=== PATIENT | female | born 1965 | race Caucasian/White ===

== ENCOUNTER → 2018-02-15 06:58 | Outpatient (CLI) | payer OTHER, SELFPAY ==
--- NOTE | 2018-02-15 06:59 | BI_ITS ---
MAMMOGRAPHY - BILATERAL SCREENING 3-D WARREN SYNTHESIS REASON FOR EXAM: Female, 52 years old. Bilateral Screening 3-D tomosynthesis PERTINENT HISTORY: Asymptomatic. Family breast carcinoma, maternal aunt age 50. TECHNIQUE: 2-D mammograms and 3-D Warren synthesis of the breast (s) were performed. CAD was performed. COMPARISON: 02/12/2017, 12/26/2010. FINDINGS: The breast composition is for extremely dense which lowers the sensitivity of mammography. Scattered benign appearing calcifications are again seen. No dense spiculated dominant masses or suspicious microcalcification cluster are identified. No architectural distortion, asymmetric density, adenopathy, skin thickening or nipple retraction identified. There has been no significant change since the most recent prior study. BI/SCREENING MAMM (CAD), BILAT IMPRESSION: No mammographic sign of malignancy. Routine yearly mammograms recommended. ASSESSMENT CATEGORY: BIRADS Category 2: Benign. A letter regarding these results will be sent to the patient by the facility within 30 days. FOLLOW UP RECOMMENDATION: Yearly follow up mammogram recommended. (A) If clinically indicated, MRI breast may be more helpful due to extreme breast density. Negative mammographic results should not deter biopsy as a palpable lesion if present should be followed on clinical grounds and biopsy performed if clinically persistent for 3 months or increasing size. Approximately 10% of breast cancers are not detected by mammography. A normal mammogram should not delay biopsy of a clinically suspicious abnormality. Dense breast tissue mainstream neoplasm. Electronically Signed: Justyn Street, at 12:17 EDT Tel , Service support ,
== END ==
PROVIDERS: Family Provider Family Medicine; PCP Family Medicine; Referring Provider Obstetrics & Gynecology; Visit Provider Obstetrics & Gynecology
DX: Z12.31 Encounter for screening mammogram for malignant neoplasm of breast (principal)
CPT/HCPCS: 77063; 77067

== ENCOUNTER → 2018-11-29 16:43 | Outpatient (CLI) | payer OTHER, SELFPAY ==
[2018-11-29 14:16] VITALS: BMI 25.5
[2018-12-03 15:09] LABS: HPV APTIMA, High Risk Negative (Negative)
== END ==
PROVIDERS: Family Provider Family Medicine; PCP Family Medicine; Referring Provider Obstetrics & Gynecology; Visit Provider Obstetrics & Gynecology
DX: Z12.4 Encounter for screening for malignant neoplasm of cervix (principal)
CPT/HCPCS: 87624; 88175; G0145

== ENCOUNTER → 2019-02-16 06:58 | Outpatient (CLI) | payer OTHER, SELFPAY ==
[2018-11-29 14:16] VITALS: BMI 25.5
--- NOTE | 2019-02-16 07:00 | BI_ITS ---
MAMMOGRAPHY - BILATERAL SCREENING 3-D TOMOSYNTHESIS REASON FOR EXAM: Female, 53 years old. Routine PERTINENT HISTORY: No significant family history. TECHNIQUE: 2-D mammograms and 3-D Tomosynthesis of the breast (s) were performed. CAD was performed. COMPARISON: 02/15/2018 FINDINGS: The breast composition is dense Scattered benign calcifications are seen. No dense spiculated masses or suspicious microcalcifications are identified. No architectural distortion is identified. There is no skin thickening or retraction. There has been no significant change since the prior study of 02/15/2018 BI/SCREEN MAMM (CAD) W/WARREN BILAT IMPRESSION: No mammographic signs of malignancy. Routine yearly mammograms recommended. ASSESSMENT CATEGORY: BIRADS Category 1: Negative. A letter regarding these results will be sent to the patient by the facility within 30 days. FOLLOW UP RECOMMENDATION: Yearly follow up mammogram recommended. (A) Approximately 10% of breast cancers are not detected by mammography. A normal mammogram should not delay biopsy of a clinically suspicious abnormality. Electronically Signed: Addison Kumar, at 8:27 EDT Tel , Service support ,
== END ==
PROVIDERS: Family Provider Family Medicine; PCP Family Medicine; Referring Provider Obstetrics & Gynecology; Visit Provider Obstetrics & Gynecology
DX: Z12.31 Encounter for screening mammogram for malignant neoplasm of breast (principal)
CPT/HCPCS: 77063; 77067

== ENCOUNTER → 2019-10-24 15:10 | Outpatient (CLI) | payer OTHER, SELFPAY ==
[2018-11-29 14:16] VITALS: BMI 25.5
[2019-10-24 18:21] LABS: ALB/GLOB Ratio 1.1 RATIO (0.9-2.4); AST(SGOT) 26 U/L (15-37); Alanine Aminotransfer ALT/SGPT 30 U/L (13-56); Albumin, Serum 4.1 g/dL (3.2-5.0); Alkaline Phosphatase 78 U/L (45-117); Anion Gap 7 (5-15); BUN 18 mg/dL (7-18); BUN/Creat Ratio 19.1 RATIO (10-20); CRP < 2.90 mg/L (0.0-3.0); Calcium,Total 9.2 mg/dL (8.5-10.1); Chloride 104 mmol/L (98-107); Creatinine, Serum 0.94 mg/dL (0.55-1.02); EST Glomerular Filtration Rate 65 mL/min (>60); Est Glom Filt Rate - Afr Amer 79 mL/min (>60); Globulin 3.8 g/dL (2.2-4.2); Glucose 122 mg/dL (74-106); Potassium 3.7 mmol/L (3.5-5.1); Protein, Total 7.9 g/dL (6.4-8.2); Sodium Level 139 mmol/L (136-145)
[2019-10-24 18:26] LABS: Erythrocyte Sedimentation Rate 15 mm/hr (0-30)
== END ==
PROVIDERS: PCP Family Medicine; Visit Provider Family Medicine
DX: Z51.81 Encounter for therapeutic drug level monitoring (principal); M54.9 Dorsalgia, unspecified; M32.9 Systemic lupus erythematosus, unspecified
CPT/HCPCS: 36415; 80053; 85652; 86140

== ENCOUNTER → 2019-10-28 09:55 | Outpatient (CLI) | payer OTHER, SELFPAY ==
[2018-11-29 14:16] VITALS: BMI 25.5
--- NOTE | 2019-10-28 10:09 | US_ITS ---
STUDY: RENAL ULTRASOUND - COMPLETE REASON FOR EXAM: Female, 54 years old. RT FLANK PAIN X 6 MONTHS TECHNIQUE: Ultrasound evaluation of the kidneys was performed with real-time and static cerrato-scale imaging. COMPARISON: None. FINDINGS: RIGHT KIDNEY: Normal location of the right kidney, which is normal in size. The right kidney measures 10.9 cm x 4.4 cm x 3.7 cm. There is a normal cortex of the right kidney. The renal cortex measures 1.3 cm. There is no right renal mass or cyst. There are no right renal calculi. There is no right hydronephrosis. DISTAL RIGHT URETER: There is non-visualization of the distal right ureter. There is no demonstrated right ureterovesical junction calculus. There is a visualized right ureteral jet. LEFT KIDNEY: Normal location of the left kidney, which is normal in size. The left kidney measures 10 cm x 4.2 cm x 4.4 cm. There is a normal cortex of the left kidney. The renal cortex measures 1.5 cm. There is no left renal mass or cyst. I suspect a 5 mm nonobstructive intrarenal calculus. There is no left hydronephrosis. DISTAL LEFT URETER: There is non-visualization of the distal left ureter. There is no demonstrated left ureterovesical junction calculus. There is a visualized left ureteral jet. BLADDER: The distended urinary bladder has a volume of 348 ml. There is a normal wall thickness of the distended urinary bladder. There is no demonstrated mass within the urinary bladder. There are no demonstrated bladder calculi. US/Kidney and Bladder IMPRESSION: I suspect a 5 mm nonobstructive left intrarenal calculus. Electronically Signed: Paul Neff, at 12:17 EDT , Service support ,
== END ==
PROVIDERS: PCP Family Medicine; Referring Provider Family Medicine; Visit Provider Family Medicine
DX: R10.9 Unspecified abdominal pain (principal)
CPT/HCPCS: 76770

== ENCOUNTER → 2020-02-20 07:40 | Outpatient (CLI) | payer OTHER, SELFPAY ==
[2018-11-29 14:16] VITALS: BMI 25.5
--- NOTE | 2020-02-20 07:40 | BI_ITS ---
MAMMOGRAPHY - BILATERAL SCREENING REASON FOR EXAM: Female, 54 years old. Routine annual screening examination. PERTINENT HISTORY: Aunt with breast cancer. TECHNIQUE: Digital bilateral breast warren (3D mammographic acquisition) in the CC and MLO projections. 2-D mediolateral oblique (MLO) and craniocaudad (CC) views of both breasts were obtained. CAD: Full Field Digital Mammography with Computer Added Detection was performed. COMPARISON: Comparison is made with prior examination dated 02/16/2019 and 02/15/2018. FINDINGS: Breast Composition: The breasts are extremely dense, which lowers the sensitivity of mammography. There are no dominant masses or suspicious calcifications. No other significant abnormalities are identified. There has been no significant change since the prior study. BI/SCREEN MAMM (CAD) W/WARREN BILAT IMPRESSION: Stable bilateral screening mammogram. Yearly follow-up mammogram recommended. (A) ASSESSMENT CATEGORY: BIRADS Category 1: Negative. A letter regarding these results will be sent to the patient by the facility within 30 days. Approximately 10% of breast cancers are not detected by mammography. A normal mammogram should not delay biopsy of a clinically suspicious abnormality. [id number] Electronically Signed: Paul Neff, at 8:33 EDT , Service support ,
== END ==
PROVIDERS: PCP Family Medicine; Referring Provider Obstetrics & Gynecology; Visit Provider Obstetrics & Gynecology
DX: Z12.31 Encounter for screening mammogram for malignant neoplasm of breast (principal); Z80.3 Family history of malignant neoplasm of breast
CPT/HCPCS: 77063; 77067

== ENCOUNTER → 2020-09-25 14:27 | Outpatient (CLI) | payer OTHER, SELFPAY ==
[2020-02-20 08:08] VITALS: BMI 25.5
--- NOTE | 2020-09-25 14:33 | US_ITS ---
STUDY: SUPERFICIAL ULTRASOUND - BACK REASON FOR EXAM: Female, 55 years old. MASS R LUMBAR PARASPINAL MUSCLE TECHNIQUE: A superficial ultrasound was performed with real-time and static blue-scale imaging. COMPARISON: None. FINDINGS: Multiple longitudinal and transverse ultrasound images the right side of the back in a paraspinal location failed to demonstrate a discrete solid or cystic mass or lymphadenopathy. US/Ext Non Vasc Limited/Soft Tiss IMPRESSION: Normal ultrasound of the soft tissues of the back. Electronically Signed: Jaylon Agudelo MD at 15:10 EDT Tel , Service support ,
== END ==
PROVIDERS: PCP Family Medicine; Referring Provider Family Medicine; Visit Provider Family Medicine
DX: M54.5 Low back pain (principal); M79.89 Other specified soft tissue disorders
CPT/HCPCS: 76882

== ENCOUNTER → 2021-01-31 15:35 | Outpatient (CLI) | payer OTHER, SELFPAY ==
--- NOTE | 2021-01-31 15:44 | MRI_ITS ---
STUDY: MRI LUMBAR SPINE WITH AND WITHOUT CONTRAST REASON FOR EXAM: Female, 55 years old. SOFT TISSUE MASS LUMBAR SPINE R lateral spine area marked with beads TECHNIQUE: Standardized fat and water weighted pulse sequences were obtained in the sagittal and axial planes. IV 12cc Dotarem was administered for the contrast portion of the examination. COMPARISON: None FINDINGS: T10-T11 and T11-T12: (Sagittal only). Normal endplates. Normal disc height, hydration and morphology. No ventral extradural defect. Normal central canal and bilateral intervertebral neural foramina. T12-L1: (Sagittal only). Normal endplates. Minimal disc space height narrowing. Left posterior paramedian ventral extradural defect is disc protrusion. Normal central canal and bilateral intervertebral neural foramina. Normal lumbar lordosis. There is no substantial scoliosis. Normal conus medullaris that terminates at the T12-L1 disc level. L1-2: Normal endplates. Normal disc height, hydration and morphology. Round benign focal fatty infiltration in the central L2 vertebral body. Normal facet joints. Normal central canal and bilateral lateral recesses. Normal bilateral intervertebral neural foramina. L2-3: Normal endplates. Normal disc height, hydration and morphology. Small benign focal fatty infiltration in the anterior upper L3 vertebral body. Normal facet joints. No ventral extradural defect. Normal central canal and bilateral lateral recesses. Normal bilateral intervertebral neural foramina. L3-4: Normal endplates. Normal disc height, hydration and morphology. Normal bilateral facet joints. Normal central canal and bilateral lateral recesses. Normal bilateral intervertebral neural foramina. L4-5: Normal endplates. Normal disc height, hydration and morphology. Mild central canal stenosis with an AP canal diameter of 9 mm. Normal bilateral lateral recesses. Normal facet joints. Normal bilateral intervertebral neural foramina. L5-S1: Normal endplates. Mild disc space height narrowing. Mild central canal stenosis with an AP canal diameter of 8.4 mm. Normal bilateral lateral recesses. Moderate right degenerative facet arthropathy. Mild left degenerative facet arthropathy. Normal bilateral intervertebral neural foramina. Normal visualized sacral ala. Normal visualized paraspinous soft tissue structures. No suspicious mass lesions underneath the right posterior paraspinal markers at the L1-L2 and L3-L4 disc space levels. No abnormal enhancing lesions intradurally and extradurally. MRI/Spine Lumbar W/WO Contrast IMPRESSION: 1. No MRI evidence of soft tissue mass in the right posterior paraspinal area underneath the markers at the L1-L2 and L3-L4 disc space levels. Only fat is present underneath the markers. 2. Mild central canal stenosis at L4-L5 disc space level with an AP canal diameter of 9 mm. 3. Mild central canal stenosis at L5-S1 disc space level with an AP canal diameter of 8.4 mm, moderate right degenerative facet arthropathy and mild left degenerative facet arthropathy. 4. No MRI evidence of lumbar extruded disc fragment. 5. No MRI evidence of any enhancing lesions intradurally and extradurally. Electronically Signed: Tristan Nice MD at 9:38 EDT , Service support ,
== END ==
PROVIDERS: PCP Family Medicine; Referring Provider Family Medicine; Visit Provider Family Medicine
DX: R22.9 Localized swelling, mass and lump, unspecified (principal); M54.5 Low back pain
CPT/HCPCS: 72158; A9575

== ENCOUNTER → 2021-02-25 08:15 | Outpatient (CLI) | payer OTHER, SELFPAY ==
[2020-02-20 08:08] VITALS: BMI 25.5
--- NOTE | 2021-02-25 08:17 | BI_ITS ---
MAMMOGRAPHY - BILATERAL SCREENING REASON FOR EXAM: Female, 55 years old. Routine annual screening examination. PERTINENT HISTORY: Aunt with breast cancer. TECHNIQUE: Digital bilateral breast warren (3D mammographic acquisition) in the CC and MLO projections. 2-D mediolateral oblique (MLO) and craniocaudad (CC) views of both breasts were obtained. CAD: Full Field Digital Mammography with Computer Added Detection was performed. COMPARISON: Comparison is made with prior examination dated 02/20/2020 and 02/16/2019. FINDINGS: Breast Composition: The breasts are extremely dense, which lowers the sensitivity of mammography. There are no dominant masses or suspicious calcifications. No other significant abnormalities are identified. There has been no significant change since the prior study. BI/SCRN MAMM (CAD)W/WARREN BILAT IMPRESSION: Stable bilateral screening mammogram. Yearly follow-up mammogram recommended. (A) ASSESSMENT CATEGORY: BIRADS Category 1: Negative. A letter regarding these results will be sent to the patient by the facility within 30 days. Approximately 10% of breast cancers are not detected by mammography. A normal mammogram should not delay biopsy of a clinically suspicious abnormality. [id number] Electronically Signed: Paul Neff MD at 8:54 EDT , Service support ,
== END ==
PROVIDERS: PCP Family Medicine; Referring Provider Obstetrics & Gynecology; Visit Provider Obstetrics & Gynecology
DX: Z12.31 Encounter for screening mammogram for malignant neoplasm of breast (principal)
CPT/HCPCS: 77063; 77067

== ENCOUNTER 2021-05-17 13:36 | Outpatient (CLI) | payer OTHER, SELFPAY | END 2021-05-17 23:59 | disposition short-term general hospital (02) | LOC: LABSPEC 13:37 | PROVIDERS: PCP Family Medicine; Referring Provider Physician Assistant Surgical; Visit Provider Physician Assistant Surgical | DX: Z11.52 Encounter for screening for COVID-19 (principal) | CPT/HCPCS: 87635; U0003; U0005 ==

== ENCOUNTER → 2021-09-05 | Outpatient (CLI) | payer OTHER, SELFPAY ==
--- NOTE | 2021-09-05 09:39 | STRESSREP ---
Stress Test Report Date: 09-05-2021 Procedure: Exercise tolerance test/imaging study Indications: Abnormal ECG; syncope Consent: Per the patient Procedure: The patient exercised on a Daniel protocol for 9 minutes completing Stage III achieving a peak heart rate of 160 bpm (98% predicted maximal heart rate) with a peak blood pressure 148/60 mmHg and a peak MET capacity of 10 METs. The baseline ECG demonstrated normal sinus rhythm. The peak exercise ECG demonstrated no obvious ECG changes. There was a rare PAC during exercise. The functional capacity was considered good. There was no complaint of chest discomfort during exercise or recovery. The examination was discontinued secondary to dyspnea. Impression: 1. Technically adequate (percent predicted maximal heart rate greater than 85%) exercise tolerance test 2. Peak exercise ECG with no obvious ECG changes 3. There was a rare PAC during exercise 4. Nuclear images pending Myocardial perfusion imaging study: Technique: The patient was injected with 11.3 mCi of technetium 99m Cardiolite and subsequently rest SPECT Cardiolite nuclear imaging was obtained in the horizontal long, vertical long, and short axis views. The patient exercised on a Daniel protocol for 9 minutes completing Stage III achieving a peak heart rate of 160 bpm (98% predicted maximal heart rate) with a peak blood pressure 148/60 mmHg and a peak MET capacity of 10 METs. The patient was injected with 33.5 mCi of technetium 99m Cardiolite and subsequently stress SPECT Cardiolite nuclear imaging was obtained in the horizontal long, vertical long, and short axis views. A gated Cardiolite study at peak stress was obtained. Interpretation: Rest and stress SPECT Cardiolite nuclear imaging status post realignment, normalization, and attenuation correction, demonstrates the appearance of relative uniform tracer uptake and myocardial perfusion appearing within normal limits. There is end systolic thickening and brightening. The gated Cardiolite study demonstrates myocardial thickening and inward wall motion. The reported LVEF is 75%. Impression: 1. Rest and stress SPECT Cardiolite nuclear imaging demonstrate relative uniform tracer uptake and myocardial perfusion appearing within normal limits. 2. The gated Cardiolite study reports an LVEF of 75%. This note was generated with [employer] software. It may contain incorrect words, spelling, and punctuation that were not noted in checking the note before signing.
== END | disposition home or self-care (01) ==
LOC: CVS 06:56
PROVIDERS: PCP Family Medicine; Referring Provider Family Medicine; Visit Provider Family Medicine
DX: R94.31 Abnormal electrocardiogram [ECG] [EKG] (principal); R55 Syncope and collapse
CPT/HCPCS: 78452; 93017; A9500; A4216

== ENCOUNTER → 2022-01-09 | Outpatient (CLI) | payer OTHER, SELFPAY ==
--- NOTE | 2022-01-09 13:52 | ECHOD_ITS ---
Reason For Study: Syncope Procedure This was a 2D Doppler, Color Flow transthoracic echocardiogram. The exam was of adequate technical quality. Exam performed in department. Left Ventricle Normal LV size. Left ventricular systolic function is normal. The estimated ejection fraction is 65 %. No evidence for diastolic dysfunction. Right Ventricle Normal RV size. Normal systolic function. Atria Normal left atrium. Normal right atrium. No doppler evidence for ASD. Mitral Valve There is no mitral annular calcification. Mild diffuse mitral valve thickening. Mild focal mitral valve calcification of the posterior leaflet. Trivial eccentric mitral valve insufficiency. Tricuspid Valve Normal tricuspid valve. Trivial tricuspid valve insufficiency. Unable to estimate RV systolic pressure due to insufficient tricuspid regurgitant envelope. Aortic Valve Trisinus/trileaflet aortic valve. Normal aortic valve. Pulmonic Valve The pulmonic valve is not well visualized. Great Vessels The aortic root is not well visualized. Pericardium/Pleural No pericardial effusion. MMode/2D Measurements & Calculations LVIDd: 5.2 cm IVSd: 0.67 cm LA dimension: 3.2 cm LVIDs: 3.4 cm LVPWd: 0.65 cm RVDd: 3.0 cm FS: 33.9 % LAV(MOD-bp): 42.7 ml LA A4 area: 15.2 cm2 RA A4 area: 12.7 cm2 LAV(MOD-bp) Indexed: 27.5 ml/m2 LAV(MOD-sp2): 48.9 ml LAV(MOD-sp4): 36.9 ml Time Measurements MV dec time: 0.16 sec Doppler Measurements & Calculations MV E max yannick: 62.9 cm/sec Lat Peak E' Yannick: 9.2 cm/sec Med Peak E' Yannick: 8.2 cm/sec MV A max yannick: 65.3 cm/sec E/E' lat: 6.9 E/E' med: 7.7 MV E/A: 0.96 MV dec slope: 388.5 cm/sec2 Ao V2 max: 117.1 cm/sec LV V1 max: 88.1 cm/sec Ao max P.5 mmHg LV V1 max P.1 mmHg Ao V2 mean: 79.0 cm/sec LV V1 mean P.6 mmHg Ao mean P.9 mmHg LV V1 mean: 59.6 cm/sec Ao V2 VTI: 25.0 cm LV V1 VTI: 18.0 cm PA V2 max: 69.8 cm/sec ECHO/Echo Complete Interpretation Summary Left ventricular systolic function is normal. The estimated ejection fraction is 65 %. Mild diffuse mitral valve thickening. Mild focal mitral valve calcification of the posterior leaflet. Trivial eccentric mitral valve insufficiency. Trivial tricuspid valve insufficiency. Unable to estimate RV systolic pressure due to insufficient tricuspid regurgita nt envelope. No evidence for diastolic dysfunction. Ordering Physician: Fred Pleitez Referring Physician: Summer Maldonado Performed By: Jh Guevara RCS
== END | disposition home or self-care (01) ==
LOC: CVS 13:51
PROVIDERS: PCP Family Medicine; Referring Provider Internal Medicine Cardiovascular Disease; Visit Provider Internal Medicine Cardiovascular Disease
DX: R55 Syncope and collapse (principal)
CPT/HCPCS: 93306

== ENCOUNTER → 2022-03-10 | Outpatient (CLI) | payer OTHER, SELFPAY ==
--- NOTE | 2022-03-10 14:57 | BI_ITS ---
MAMMOGRAPHY - BILATERAL SCREENING REASON FOR EXAM: Female, 56 years old. Routine annual screening examination. PERTINENT HISTORY: Aunt with breast cancer. TECHNIQUE: Digital bilateral breast warren (3D mammographic acquisition) in the CC and MLO projections. 2-D mediolateral oblique (MLO) and craniocaudad (CC) views of both breasts were obtained. CAD: Full Field Digital Mammography with Computer Added Detection was performed. COMPARISON: Comparison is made with prior study 02/25/2021 and 02/20/2020. FINDINGS: Breast Composition: The breasts are extremely dense, which lowers the sensitivity of mammography. There are no dominant masses or suspicious calcifications. No other significant abnormalities are identified. There has been no significant change since the prior study. BI/SCRN MAMM (CAD)W/WARREN BILAT IMPRESSION: Stable bilateral screening mammogram. Yearly follow-up mammogram recommended. (A) ASSESSMENT CATEGORY: BIRADS Category 1: Negative. A letter regarding these results will be sent to the patient by the facility within 30 days. Approximately 10% of breast cancers are not detected by mammography. A normal mammogram should not delay biopsy of a clinically suspicious abnormality. [id number] Electronically Signed: Paul Neff MD at 15:51 EDT ,
== END | disposition home or self-care (01) ==
LOC: OPBI 14:56
PROVIDERS: PCP Family Medicine; Visit Provider Obstetrics & Gynecology
DX: Z12.31 Encounter for screening mammogram for malignant neoplasm of breast (principal); Z80.3 Family history of malignant neoplasm of breast
CPT/HCPCS: 77063; 77067

== ENCOUNTER → 2022-08-18 | Outpatient (CLI) | payer OTHER, SELFPAY ==
--- NOTE | 2022-08-18 16:29 | RAD_ITS ---
EXAM: XR CHEST, 2 VIEWS CLINICAL INDICATION: FEVER TECHNIQUE: Frontal and lateral views of the chest. This report was created using [employer] report generation technology. COMPARISON: July 25 FINDINGS: LUNGS AND PLEURAL SPACES: Increased lung volumes and increased lucency at the upper lungs is concerning for emphysema. No consolidation. No pleural effusion or pneumothorax. HEART: Unremarkable. Cardiac silhouette not enlarged. MEDIASTINUM: Central airways and mediastinal contour are unremarkable. BONES/JOINTS: Unremarkable. SOFT TISSUES: Unremarkable. RAD/Chest PA and Lateral IMPRESSION: No acute cardiopulmonary disease. Electronically Signed: Raad Sneed MD at 4:05 EDT ,
[2022-08-18 17:39] LABS: Absolute Lymphocyte Count 1.82 X10^3/uL (0.83-4.51); Basophil# 0.04 X10^3/uL; Basophil% 0.5 % (0-1); Eosinophil# 0.05 X10^3/uL; Eosinophils% 0.6 % (0-5); Hematocrit 38.6 % (37-47); Hemoglobin 12.4 g/dL (12.0-15.0); Lymphocyte # 1.82 X10^3/ul (0.83-4.51); Lymphocyte % 20.7 % (19-41); Mean Corp Hgb Conc 32.1 g/dL (32-36); Mean Corpuscular Hgb 29.8 pg (27.0-32.0); Mean Corpuscular Volume 92.8 fL (81-99); Mean Platelet Vol. 9.4 fl (6.2-12.0); Monocyte% 10.2 % (0-10); NRBC Flagged by Analyzer 0 % (0-5); Neutrophil # 5.95 X10^3/uL (2.7-7.7); Neutrophil % 67.7 % (47-70); Platelet Count 236 K/mm3 (150-450); RBC Distribution Width CV 12.2 % (11.6-14.6); RBC Distribution Width SD 41.5 fl (35.1-43.9); Red Blood Count 4.16 M/mm3 (4.2-5.4); White Blood Count 8.8 K/mm3 (4.4-11.0)
== END | disposition home or self-care (01) ==
PROVIDERS: PCP Family Medicine; Referring Provider Family Medicine; Visit Provider Family Medicine
DX: R50.9 Fever, unspecified (principal)
CPT/HCPCS: 36415; 71046; 85025; 87635; U0003; U0005

== ENCOUNTER 2023-01-05 19:17 | Emergency (ER) | payer OTHER, SELFPAY ==
[2023-01-05 19:18] VITALS: BP 139/70; PULSE 100; RESP 18; TEMP 37.4; O2SAT 95; BMI 24.0
--- NOTE | 2023-01-05 19:57 | RAD_ITS ---
STUDY: X-RAY CHEST REASON FOR EXAM: Female, 57 years old. Sob TECHNIQUE: Single AP portable view of the chest. COMPARISON: August 18, 2022 chest x-ray FINDINGS: The lungs are clear and expanded. There is no demonstrated pleural abnormality. Normal size heart. Normal mediastinum and ayden. Normal visualized pulmonary arteries. There is atherosclerotic tortuosity of the aortic arch and descending thoracic aorta. There are diffuse degenerative changes of the visualized thoracic spine. Normal visualized ribs, clavicles, and shoulders. There is no demonstrated abnormality of the visualized soft tissue structures of the upper abdomen. RAD/Chest 1 View IMPRESSION: Stable chest, no visualized acute focal infiltrate. Electronically Signed: Rosalia Manzano MD at 20:24 EDT ,
--- NOTE | 2023-01-05 21:44 | EX.ED.DYSGE1 ---
HPI History of Present Illness Chief Complaint: Shortness of Breath Informant: patient and spouse/S.O. Narrative Narrative: Patient presents with body aches and other symptoms. Patient states she had a slight sore throat for couple days but that is better. Then over the last days she has developed diffuse myalgias. She states she feels like a she got run over with a truck. She has had some congestion. She has had some cough but no productivity. She is not actually short of breath. She has had loss of appetite but no nausea vomiting diarrhea or abdominal pain. She has had a low-grade fever below 100. She does not know anyone else who is ill. What concerned her is that she took a nap today. When she woke up she was much more achy all over. This concerned her. But now that she is up moving she feels better. She took a COVID home test that was negative. No travel surgery immobilization personal family history of DVT or PE. Patient has no medical illness. She does have some allergies but no diabetes blood pressure heart disease pulmonary embolus. She is not on any long-term medications. [facility] Medical History Allergies Basal cell carcinoma (BCC) Chest pain Chronic headaches Lupus (systemic lupus erythematosus) Osteopenia Syncope Home Medications ascorbate calcium (vitamin C) 500 mg tablet 500 mg PO DAILY 02/20/20 [History Last Taken Unknown] calcium citrate 250 mg calcium-vitamin D3 5 mcg (200 unit) tablet (Citracal Regular) 1 tab PO TID 02/20/20 [History Last Taken Unknown] Allergy/AdvReac Type Severity Reaction Status Date / Time No Known Allergies Allergy Verified 01/05/23 19:21 Family History Father Diabetes Hypertension Mother Osteoporosis Cancer Pulmonary fibrosis Surgical History Hx of colonoscopy Social History Smoking Status: Former smoker alcohol intake: never substance use type: does not use caffeine: Yes frequency: 3-4 times per week seatbelt use: always do you feel safe at home: Yes additional social history: - Indra Gastelum Works from home ROS ROS ED Constitutional Constitutional ED: Reports chills, fever(s) and subjective Eyes Eyes: Denies change in vision ENT ENT ED: Reports rhinorrhea and sore throat; Denies ear pain Cardiovascular Cardiovascular: Denies chest pain, palpitations or racing heartbeat Respiratory/Chest Respiratory/Chest: Reports cough; Denies dyspnea Gastrointestinal Gastrointestinal: Denies abdominal pain, diarrhea, nausea or vomiting Genitourinary Genitourinary ED: Denies dysuria or urinary frequency Musculoskeletal Musculoskeletal: Reports arthralgias and myalgias Integumentary Denies rash Neurologic Neurologic: Denies headache(s), paresthesias or weakness Endocrine Endocrinology: Denies polydipsia or polyuria Hematologic/Lymphatic Hematologic/Lymphatic: Denies easy bleeding, easy bruising or lymphadenopathy Allergic/Immunologic Allergic/Immunologic ED: Denies urticaria EXAM Physical Exam Narrative Exam Narrative: Patient is awake alert appropriate no acute distress sitting comfortably in bed. HEENT shows no erythema. No sign of trauma. Mucous membranes are still moist. Eyes no icterus or injection. Neck is supple. No JVD. No meningismus. Lungs are clear bilaterally. Saturations are normal at 95% on room air showing no hypoxia. There is no pain with a deep breath. Heart is regular. Rate of about 85 on my exam. No murmur gallop rub or muffled tones. Peripheral pulses are normal x4. Abdomen is soft and completely nontender. Again, she has lack of interest in food but no pain nausea vomiting or diarrhea at this time. There is no CVA or suprapubic tenderness. Extremities show no edema or cords. No swollen joints. Skin shows no rashes or pallor. No jaundice. Const Vital Signs: 01/05/23 19:18 Temperature 99.3 F H Temperature Source Temporal Pulse Rate 100 Respiratory Rate 18 Blood Pressure 139/70 H Blood Pressure Mean 93 Pulse Ox 95 Oxygen Delivery Method Room Air MDM MDM MDM Narrative Medical decision making narrative: Patient presents with symptoms consistent with a viral illness. She has congestion cough loss of appetite and diffuse myalgias. She has negative COVID here and negative at home. My independent interpretation the patient's single view AP chest x-ray shows no acute process. Final reading is stable chest, no visualized acute focal infiltrate. I do not think further work-up is needed at this point. Patient is feeling better. We discussed maintaining fluids, diet, Tylenol. If she develops specific symptoms of focal pain, trouble breathing, sputum production, hemoptysis or other issues she should return. But at this point I do not think blood work or further work-up is needed. Radiography Diagnostic Testing: Clinical Impression(s) from Imaging Studies Chest X-Ray 01/05/23 19:57 IMPRESSION: Stable chest, no visualized acute focal infiltrate. Electronically Signed: Rosalia Manzano MD at 20:24 EDT , Discharge Plan Triage Chief Complaint: Shortness of Breath ED Provider: Dennis Freed Dx/Rx/DC Orders Clinical Impression: Myalgia, Loss of appetite, Acute viral syndrome Instructions: ED Myalgias, ED Viral Syndrome (Adult) Prescriptions: No Action calcium citrate 250 mg calcium-vitamin D3 200 unit tablet 250 mg calcium- 200 unit tablet 1 tab PO TID ascorbate calcium (vitamin C) 500 mg tablet 500 mg PO DAILY Primary Care Provider: Summer Maldonado Referrals: Summer Maldonado DO [Primary Care Provider] - 3-5 Days if not improving Disposition Disposition: Home, Self Care
== END 2023-01-05 22:00 | disposition home or self-care (01) ==
PROVIDERS: Emergency Provider Emergency Medicine; PCP Family Medicine; Visit Provider Emergency Medicine
DX: M79.10 Myalgia, unspecified site (principal); B34.9 Viral infection, unspecified; Z87.891 Personal history of nicotine dependence; R63.0 Anorexia
CPT/HCPCS: 71045; 87811; 99282

== ENCOUNTER → 2023-03-16 | Outpatient (CLI) | payer OTHER, SELFPAY ==
--- NOTE | 2023-03-16 14:18 | BI_ITS ---
MAMMOGRAPHY - BILATERAL SCREENING REASON FOR EXAM: Female, 57 years old. Routine annual screening examination. PERTINENT HISTORY: Aunt with breast cancer. TECHNIQUE: Digital bilateral breast warren (3D mammographic acquisition) in the CC and MLO projections. 2-D mediolateral oblique (MLO) and craniocaudad (CC) views of both breasts were obtained. CAD: Full Field Digital Mammography with Computer Added Detection was performed. COMPARISON: Comparison is made with prior study March 10, 2022 and February 25, 2021. FINDINGS: Breast Composition: The breasts are extremely dense, which lowers the sensitivity of mammography. There are no dominant masses or suspicious calcifications. No other significant abnormalities are identified. There has been no significant change since the prior study. BI/SCRN MAMM (CAD)W/WARREN BILAT IMPRESSION: Stable bilateral screening mammogram. Yearly follow-up mammogram recommended. (A) ASSESSMENT CATEGORY: BIRADS Category 1: Negative. A letter regarding these results will be sent to the patient by the facility within 30 days. Approximately 10% of breast cancers are not detected by mammography. A normal mammogram should not delay biopsy of a clinically suspicious abnormality. [id number] Electronically Signed: Paul Neff MD at 15:12 EST ,
[2023-03-23 13:07] LABS: HPV APTIMA, High Risk Negative (Negative)
== END | disposition home or self-care (01) ==
PROVIDERS: PCP Family Medicine; Referring Provider Family Medicine; Visit Provider Obstetrics & Gynecology
DX: Z12.31 Encounter for screening mammogram for malignant neoplasm of breast (principal); Z80.3 Family history of malignant neoplasm of breast
CPT/HCPCS: 77063; 77067; 87624; 88175; G0145

== ENCOUNTER → 2023-03-26 | Outpatient (CLI) | payer OTHER, SELFPAY ==
--- NOTE | 2023-03-26 16:02 | BD_ITS ---
STUDY: DUAL ENERGY X-RAY ABSORPTIOMETRY / DXA REASON FOR EXAM: Female, 57 years old. [id number] TECHNIQUE: Bone Mineral Density (BMD) measurements of lumbar spine and bilateral hips were obtained. COMPARISON: None. FINDINGS: Lumbar Spine (L1-L4): g/cm2 (0.814) / T-score (-2.1) / Z-score (-0.8) Findings are suggestive of osteopenia with a high fracture risk. Left Femur Total: g/cm2 (0.731) / T-score (-1.7) / Z-score (-0.9) Left Femoral Neck: g/cm2 (0.598) / T-score (-2.3) / Z-score (-1.0) Right Femur Total: g/cm2 (0.724) / T-score (-1.8) / Z-score (-0.9) Right Femoral Neck: g/cm2 (0.605) / T-score (-2.2) / Z-score (-1.0) BD/Dexa Bone Density Study IMPRESSION: The patient is considered osteopenic as outlined below according to World [employer] Organization (WHO) criteria with a high fracture risk. Reference Information: The T-score is the number of standard deviations above or below the standard which is normal for young adults at their peak bone mineral density. The World Health Organization (WHO) interprets the T-scores as follows: Above -1 Normal bone density Between -1 and -2.5 Osteopenia Equal to / or below -2.5 Osteoporosis As a practical clinical guideline, osteopenia may be graded as follows: Mild -1 through -1.5 Moderate -1.6 through -2.0 Severe -2.1 through -2.4 The Z-score is the number of standard deviations above or below age-matched controls. A Z-score of less than -1.5 would be considered abnormal. References: 1. NIH Osteoporosis and Related Bone Diseases www osteo.org 2. International Society for Clinical Densitometry www iscd.org 3. National Osteoporosis Foundation www nof.org Electronically Signed: Paul Neff MD at 9:15 EST ,
== END | disposition home or self-care (01) ==
LOC: OPBD 15:59
PROVIDERS: PCP Family Medicine; Referring Provider Family Medicine; Visit Provider Family Medicine
DX: M81.0 Age-related osteoporosis without current pathological fracture (principal)
CPT/HCPCS: 77080

== ENCOUNTER → 2023-04-24 | Outpatient (CLI) | payer OTHER, SELFPAY ==
[2023-05-01 18:22] LABS: HPV Reflexed? NOT INDICATED
== END | disposition home or self-care (01) ==
LOC: LABSPEC 16:55
PROVIDERS: PCP Family Medicine; Referring Provider Obstetrics & Gynecology; Visit Provider Obstetrics & Gynecology
DX: R87.615 Unsatisfactory cytologic smear of cervix (principal)
CPT/HCPCS: 88175; G0145

== ENCOUNTER → 2023-12-07 | Outpatient (CLI) | payer MEDICAID, SELFPAY ==
[2023-12-07 15:35] LABS: Absolute Lymphocyte Count 1.94 X10^3/uL (0.83-4.51); Absolute Neutrophil Count 2.6 X10^3/uL (2.0-7.7); Basophil# 0.03 X10^3/uL; Basophil% 0.6 % (0-1); Eosinophil# 0.07 X10^3/uL; Eosinophils% 1.4 % (0-5); Hematocrit 38.3 % (37-47); Hemoglobin 12.4 g/dL (12.0-15.0); Lymphocyte # 1.94 X10^3/ul (0.83-4.51); Lymphocyte % 38.3 % (19-41); Mean Corp Hgb Conc 32.4 g/dL (32-36); Mean Corpuscular Volume 92.5 fL (81-99); Monocyte# 0.45 X10^3/uL; Monocyte% 8.9 % (0-10); NRBC Flagged by Analyzer 0 % (0-5); Neutrophil # 2.56 X10^3/uL (2.7-7.7); Neutrophil % 50.6 % (47-70); Platelet Count 199 K/mm3 (150-450); RBC Distribution Width SD 44.1 fl (35.1-43.9); Red Blood Count 4.14 M/mm3 (4.2-5.4); White Blood Count 5.1 K/mm3 (4.4-11.0)
[2023-12-07 15:57] LABS: Vitamin B12 483 pg/mL (211-911)
[2023-12-07 16:05] LABS: AST(SGOT) 31 U/L (15-37); Alanine Aminotransfer ALT/SGPT 34 U/L (13-56); Albumin, Serum 3.7 g/dL (3.2-5.0); Alkaline Phosphatase 75 U/L (45-117); Anion Gap 4 (5-15); BUN 20 mg/dL (7-18); BUN/Creat Ratio 24.6 RATIO (10-20); Calcium,Total 8.9 mg/dL (8.5-10.1); Chloride 103 mmol/L (98-107); Creatinine, Serum 0.81 mg/dL (0.55-1.02); EST Glomerular Filtration Rate 77 mL/min (>60); Est Glom Filt Rate - Afr Amer 93 mL/min (>60); Ferritin 46 ng/mL (8-252); Free T3 2.8 pg/mL (2.18-3.98); Globulin 3.8 g/dL (2.2-4.2); Glucose 91 mg/dL (74-106); Iron 94 ug/dL (50-170); Potassium 3.7 mmol/L (3.5-5.1); Protein, Total 7.5 g/dL (6.4-8.2); Sodium Level 137 mmol/L (136-145); T4 Free Direct 0.89 ng/dL (0.76-1.46); Thyroid Stim Hormone (TSH) 1.61 uIU/mL (0.358-3.74)
[2023-12-09 15:09] LABS: DHEA Sulfate 80.7 ug/dL (29.4-220.5); Thyroglobulin Antibody < 1.0 IU/mL (0.0-0.9); Thyroid Peroxidase AB 12 IU/mL (0-34)
== END | disposition home or self-care (01) ==
PROVIDERS: PCP Family Medicine; Referring Provider Family Medicine; Visit Provider Family Medicine
DX: R53.83 Other fatigue (principal); D64.9 Anemia, unspecified; E53.8 Deficiency of other specified B group vitamins; R63.4 Abnormal weight loss; Z51.81 Encounter for therapeutic drug level monitoring
CPT/HCPCS: 36415; 80053; 82607; 82627; 82728; 83540; 84439; 84443; 84481; 85025; 86376; 86800; 82626

== ENCOUNTER → 2024-01-18 | Outpatient (CLI) | payer OTHER, SELFPAY ==
[2024-01-18 09:11] LABS: Vitamin D,25 Hydroxy 82.9 ng/mL
[2024-01-18 09:15] LABS: Hemoglobin A1c 5.4 % (3.8-5.6)
[2024-01-18 09:37] LABS: Estradiol < 11.0 pg/mL; Luteinizing Hormone 31.7 mIU/mL; T4 Free Direct 1.07 ng/dL (0.76-1.46)
[2024-01-19 04:07] LABS: CRP, High Sensitivity 0.64 mg/L (0.00-3.00); PROGESTERONE 0.1 ng/mL (.)
[2024-01-26 00:07] LABS: DHEA Sulfate 87.2 ug/dL (29.4-220.5); Insulin Level 3.5 uIU/mL (2.6-24.9); PROLACTIN 8.6 ng/mL (3.6-25.2); T3 Reverse 16.9 ng/dL (9.2-24.1); Testosterone, % Free 1.38 % (0.50-2.80); Testosterone, Free 0.12 ng/dL (0.10-0.85); Testosterone, Total 9 ng/dL (4-50); Thyroglobulin Antibody < 1.0 IU/mL (0.0-0.9); Thyroid Peroxidase AB 14 IU/mL (0-34)
== END | disposition home or self-care (01) ==
PROVIDERS: PCP Family Medicine
DX: R73.01 Impaired fasting glucose (principal); N95.1 Menopausal and female climacteric states; E55.9 Vitamin D deficiency, unspecified; R53.83 Other fatigue; R53.81 Other malaise
CPT/HCPCS: 36415; 82306; 82627; 82670; 83001; 83002; 83036; 83090; 83525; 84144; 84146; 84402; 84403; 84439; 84443; 84481; 84482; 86141; 86376; 86800; 82626

== ENCOUNTER → 2024-02-15 | Outpatient (CLI) | payer OTHER, SELFPAY ==
--- NOTE | 2024-02-15 07:57 | CT_ITS ---
STUDY: CT CHEST WITHOUT CONTRAST REASON FOR EXAM: Female, 58 years old. Other fatigue, limited chest over read only RADIATION DOSAGE (If Supplied By Facility): CTDIvol = ( 12.19 ) mGy, DLP = ( 195.04 ) mGycm TECHNIQUE: Transaxial imaging was performed without the administration of intravenous contrast material. Individualized dose optimization techniques were used for this CT. COMPARISON: No relevant priors. FINDINGS: CHEST There is evidence of scarring and bronchiectasis along the posterior aspect of the lingular segment of the left upper lobe abutting the left major fissure. There is no demonstrated pleural abnormality. Minimal calcification of the LAD. Normal mediastinum. Normal hilar regions. Normal unenhanced pulmonary arteries. Normal aorta arch and descending thoracic aorta. Normal osseous structures. There is no demonstrated abnormality of the visualized upper abdomen. CT/Limited Chest CT Cardiac Only IMPRESSION: Minimal degree of coronary calcification. Electronically Signed: Paul Neff MD at 12:51 EDT ,
--- NOTE | 2024-02-15 14:42 | CA.SCORE ---
Calcium Scoring Date of Study:: 02/15/24 Indications Indications: Fatigue Coronary Calcium Scoring: High-resolution Computed Tomographic imaging of the chest was performed on [02/15/24 ], with particular attention paid to the coronary arteries. Images from the examination were analyzed for the presence and extent of coronary artery calcification , using coronary calcium quantification software. The patient tolerated the procedure well and there were no complications. The results of the coronary calcification analysis are provided below. Findings Coronary Artery Left Main (LM): 0 Left Anterior Descending (LAD): 0 Left Circumflex (LCX): 0 Right Coronary Artery (RCA): 0 Total Agatston Score: 0 Percentile Rankin% Calcium Scoring Interpretation: Different methods to categorize the overall amount of coronary plaque. Overall amount CAC SIS Visual of coronary plaque P1 Mild -100 <2 1-2 vessels with mild amount of plaque P2 Moderate 101-300 3-4 1-2 vessels with moderate amount, 3 vessels with mild amount of plaque P3 Severe 301-999 5-7 3 vessels with moderate amount, 1 vessel with severe amount of plaque P4 Extensive >1000 >8 2-3 vessels with severe amount of plaque Conclusion: No atherosclerotic plaque noted
== END | disposition home or self-care (01) ==
PROVIDERS: PCP Family Medicine; Referring Provider Family Medicine; Visit Provider Family Medicine
DX: R53.83 Other fatigue (principal); E78.5 Hyperlipidemia, unspecified; Z82.41 Family history of sudden cardiac death
CPT/HCPCS: 75571; 76380

== ENCOUNTER → 2024-03-17 | Outpatient (CLI) | payer OTHER, SELFPAY | END | disposition home or self-care (01) | LOC: OPBI 07:06 | PROVIDERS: PCP Family Medicine; Referring Provider Nurse Practitioner Women's Health; Visit Provider Nurse Practitioner Women's Health | DX: Z12.31 Encounter for screening mammogram for malignant neoplasm of breast (principal); Z80.3 Family history of malignant neoplasm of breast | CPT/HCPCS: 77063; 77067 ==

== ENCOUNTER → 2025-01-27 | Outpatient (CLI) | payer OTHER, SELFPAY ==
--- NOTE | 2025-01-27 08:06 | EKG12_ITS ---
Test Reason : PREOP Blood Pressure : */* mmHG Vent. Rate : 64 BPM Atrial Rate : 64 BPM P-R Int : 148 ms QRS Dur : 86 ms QT Int : 416 ms P-R-T Axes : 70 49 54 degrees QTcB Int : 429 ms Normal sinus rhythm Normal ECG Confirmed by MAGGY LUCIO MD ([id number]), editor [place]AUER ([id number]) on 01/27/2025 2:17:38 PM Also confirmed by MAGGY LUCIO MD ([id number]), editor [place] ([id number]) on 01/27/2025 2:21:04 PM Referred By: Dweayne Harrison Confirmed By: MAGGY LUCIO MD
--- OUTSIDE RECORDS SUMMARY | 2025-01-27 08:25 | XMS RPT_ITS | CCD ---
Author Organization [facility] Care Team Providers Care Welcome Wagon Host/Hostess Name Role Phone Dr. Summer Maldonado Primary Care Provider Dr. Summer Maldonado Referring Provider [phone] Shikha Martinez Attending Provider Dr. Summer Maldonado Other Provider Dr. Fred Pleitez Attending Provider Dr. Summer Maldonado Primary Care Provider Dr. Summer Maldonado Referring Provider [phone] Fred Pleitez Attending Provider Dr. Summer Maldonado Primary Care Provider Dr. Summer Maldonado Referring Provider Dr. Fred Pleitez Attending Provider Dr. Clotilde Humphries Attending Provider [phone] Fast DO, Deborah A Primary Care Provider [phone] FAST, DEBORAH A Primary Care Unavailable KENDALL COOPER Attending Unavailab le FAST, DEBORAH A Primary Care Unavailable KENDALL COOPER Referring Unavailab le Fast DO, Deborah A Primary Care Provider Dr. Summer Maldonado Primary Care Provider Dr. Summer Maldonado Referring Provider Dr. Clotilde Humphries Attending Provider [phone] Delma WATER MAIN INSTALLER HELPER, Tahmina Attending Unavailable Malys, Summer Primary Care Unavailable Malys, Summer Primary Care Unavailable Malys, Summer Referring Unavailable Malys, Summer Consulting Unavailable Selvin, Montgomery Attending Unavailable [place] WATER MAIN INSTALLER HELPER, Tahmina Attending Unavailable Malys, Summer Primary Care Unavailable Malys, Summer Referring Unavailable Malys, Summer Referring Unavailable Malys, Summer Attending Unavailable Malys, Summer Primary Care Unavailable Malys, Summer Primary Care Unavailable [place] WATER MAIN INSTALLER HELPER, Tahmina Referring Unavailable Delma WATER MAIN INSTALLER HELPER, Tahmina Attending Unavailable Malys, Summer Referring Unavailable Malys, Summer Attending Unavailable Malys, Summer Primary Care Unavailable Malys, Summer Primary Care Unavailable KIM, KIRSTEN Referring Unavailable KIM, KIRSTEN Attending Unavailable Allergies Allergy Classification Reported Allergen(s) Allergy Type Date of Onset Reaction(s) Facility (4 sources) Homeopathic Products; Translations: [HOMEOPATHIC PRODUCTS] Propensity to adverse reactions 03-27-2006 [facility] Work Phone: Medications Current Medications Medication Drug Class(es) Dates Sig (Normalized) Sig (Original) calcium ascorbate 500 mg oral tablet (6 sources) Start: 02-20-2020 take 500 mg by mouth once daily Ascorbate Calcium (Vitamin C) Active 500 MG PO DAILY February 19, 2020 11:00pm calcium citrate 1190 mg / cholecalciferol 0.005 mg oral tablet (6 sources) Vitamin D Start: 02-20-2020 take 1 tablet by mouth three times daily calcium citrate 250 mg calcium-vitamin D3 200 unit tablet Active 1 TABLET PO THREE TIMES A DAY February 19, 2020 11:00pm Completed/Discontinued Medications Medication Drug Class(es) Dates Sig (Normalized) Sig (Original) ascorbic acid 500 mg oral tablet (3 sources) Vitamin C Start: 03-29-2009 ascorbic acid(VITAMIN C 500 MG TAB) Take one(1) tablet daily. 0 03/29/2009 Active Comment on above: Take one(1) tablet d aily. calcium carbonate 1500 mg oral tablet (9 sources) Start: 03-29-2009 End: 11-29-2018 take 600 mg by mouth once daily Calcium Carbonate Discontinued 600 MG PO DAILY July 21, 2016 11:00pm November 29, 2018 1:15pm Comment on above: Take one(1) tablet d aily. cetirizine hydrochloride 10 mg oral tablet (3 sources) Histamine-1 Receptor Antagonist Start: 01-15-2011 take 1 tablet by mouth once daily cetirizine (ZYRTEC) 10 mg tablet Take 1 tablet by mouth once daily. 0 01/15/2011 Active Comment on above: Take 1 tablet by maya th once daily. MINERALS ORAL (3 sources) MINERALS ORAL Ta ke by mouth. MINERAL DRINK- ZIJA 0 Active Comment on above: Take by mouth. PUBLIC STENOGRAPHER AL DRINK- ZIJA multivitamin (DAILY VITAMIN) tablet (2 sources) Start: 06-24-2012 take 1 tablet by mouth once daily multivitamin (DAILY VITAMIN) tablet Take 1 tablet by mouth once daily. 0 06/24/2012 Active Comment on above: Take 1 tablet by maya th once daily. Multivitamin preparation (6 sources) Start: 07-22-2016 End: 11-29-2018 Multivitamin Discontinued 1 EACH PO DAILY July 22, 2016 12:49pm November 29, 2018 2:15pm Start: 07-22-2016 End: 11-29-2018 Multivitamin Discontinued 1 EACH PO DAILY July 21, 2016 11:00pm November 29, 2018 1:15pm Start: 07-22-2016 End: 11-29-2018 Multivitamin Discontinued 1 EACH PO DAILY July 22, 2016 12:00am November 29, 2018 2:15pm multivitamin tablet (1 source) Start: 06-24-2012 take 1 tablet by mouth once daily multivitamin tablet Take 1 tablet by mouth once daily. 0 06/24/2012 Active Comment on above: Take 1 tablet by maya th once daily. Problems Active Problems Problem Classification Problem Date Documented Da te Episodic/Chronic Allergic reactions (6 sources) Allergic condition; Translations: [Allergy, unspecified, initial encounter] 10-15-2020 Episodic Headache; including migraine (6 sources) Chronic headache disorder; Translations: [Chronic headache disorder] 10-15-2020 Episodic Nonspecific chest pain (7 sources) Chest pain; Translations: [Chest pain, unspecified] Episodic Other bone disease and musculoskeletal deformities (6 sources) Osteopenia; Translations: [Other specified disorders of bone density and structure, unspecified site] 10-15-2020 Episodic Other connective tissue disease (3 sources) Muscle pain; Translations: [Myalgia, unspecified site] 01-05-2023 Episodic Other non-epithelial cancer of skin (6 sources) Basal cell carcinoma of skin; Translations: [Basal cell carcinoma of skin, unspecified] 10-15-2020 Episodic Other nutritional; endocrine; and metabolic disorders (3 sources) Loss of appetite; Translations: [Anorexia] 01-05-2023 Episodic Residual codes; unclassified (6 sources) History of colonoscopy; Translations: [Other specified postprocedural states] 12-18-2021 Episodic Residual codes; unclassified (2 sources) Pain; Translations: [Pain, unspecified] Episodic Residual codes; unclassified (1 source) Pain, unspecified; Translations: [Pain] Onset: 10-15-2022 Episodic Spondylosis; intervertebral disc disorders; other back problems (6 sources) Backache; Translations: [Dorsalgia, unspecified] 10-16-2020 Episodic Syncope (7 sources) Syncope; Translations: [Syncope and collapse] Episodic Viral infection (3 sources) Acute viral disease; Translations: [Viral infection, unspecified] 01-05-2023 Episodic Past or Other Problems Problem Classification Problem Date Documented Da te Episodic/Chronic Diabetes mellitus without complication (1 source) Impaired fasting glucose; Translations: [Impaired fasting glucose] Onset: 02-15-2024 Episodic Malaise and fatigue (2 sources) Other fatigue; Translations: [Other fatigue] Onset: 03-07-2024 Episodic Other gastrointestinal disorders (3 sources) Finding of abdomen; Translations: [Other specified symptoms and signs involving the digestive system and abdomen] Onset: 06-24-2012 06-24-2012 Episodic Other screening for suspected conditions (not mental disorders or infectious disease) (2 sources) Cervical smear result; Translations: [Unsatisfactory cytologic smear of cervix] Onset: 04-12-2024 03-23-2023 Episodic Results Test Name Value Interpretation Reference Range Facility Sisal Operator Office Visit Reporton 04-25-2024 Sisal Operator Office Visit Report 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: No Is patient in pain?: No Allergies No Known Allergies Allergy (Verified 04/25/24 15:15) Medications ???Medication ???Instructions ???Recorded ???Confirmed ???Type ascorbate calcium (vitamin C) 500 500 mg PO DAILY 02/20/20 04/25/24 History mg tablet calcium 250 mg (as 1 tab PO TID 02/20/20 04/25/24 History citrate)-vitamin D3 5 mcg (200 unit) tablet (Citracal Regular) estradiol 0.025 mg/24 hr 1 patch transdermal 2XW 04/25/24 04/25/24 History semiweekly transdermal patch progesterone micronized 100 mg 100 mg PO QHS 04/25/24 04/25/24 History capsule Is last menstrual period known: No Post menopausal: Yes Patient : No : No PFSH Medical History Syncope Chest pain Basal cell carcinoma (BCC) Osteopenia Chronic headaches Allergies Lupus (systemic lupus erythematosus) Surgical History Hx of colonoscopy Family History Father Diabetes Hypertension Mother Osteoporosis Cancer Pulmonary fibrosis Social History Smoking Status: Former smoker alcohol intake: never substance use type: does not use caffeine: Yes frequency: 3-4 times per week seatbelt use: always do you feel safe at home: Yes additional social history: - Indra Gastelum Works from home History 2 Elective abortions Hx Para 2 Spontaneous abortions Hx # Term Pregnancies Ectopic pregnancies Hx # Pregnancies Multiple births # of living children Past Pregnancies Del. Date Name GA/Weeks Outcome Route Bth Weight Gen Labor Lgth Anesthesia Del Locatn Provider FOB Unknown 1991 [place] Unknown 1994 Marzena [facility] Encounter for routine gynecological examination Details: ANT SNIDER is a 58 year old who presents for annual exam. Recently started estrogen patch 0.025mg twice a week and micronized progesterone 100mg WHS through [employer] for hot flashes and brain fog. Has been on less then 1 week but noticing better sleep Last PAP: 2022 History of abnormal PAP: no Last mammogram: 03/2024 History of abnormal mammogram: no Colon cancer screenin Other preventative health care screenings: Erica Female Reproductive History Questions: metorrhagia: No, sexually active: Yes, dyspareunia: No and PCB: No Menopausal Symptoms: Yes hot flashes, Yes mood changes and Yes sleep problems Menopausal Treatment: Yes HRT ROS Const Constitutional: Denies fatigue, weight gain or weight loss Cardio Card: Denies chest pain Resp Resp: Denies cough or dyspnea on exertion GI GI: Denies abdominal pain, bloating, change in stool character, constipation or vomiting : Reports hot flashes Exam Const General: cooperative, healthy appearing, no acute distress and well developed Orientation: alert, oriented to person and oriented to place HENMT Head: normal to inspection Neck Neck: normal visual inspection Thyroid: thyroid normal Lymphatic: no lymphadenopathy noted Chest Breast inspection: normal inspection of the breasts and normal inspection of the axillae Breast palpation: normal palpation of the breasts, normal palpation of the axillae and no axillary lymphadenopathy Resp Effort Inspection: normal respiratory effort GI Palpation: soft, no masses and nontender Rectal Exam: deferred External Female Exam: normal external appearance and normal appearance of the urethra Urethra: normal appearance of the urethra and normal palpation Speculum Exam - Vagina: normal appearance of the vagina and normal vaginal discharge Speculum Exam - Cervix: normal appearance of the cervix Bimanual Exam- Vagina Uterus: normal bimanual exam, uterine size normal, uterine shape normal and non-tender Bimanual Exam- Adnexa, other: normal adnexae, no masses, normal and non-tender Pelvic Support: normal Neuro General: patient alert and patient oriented x3 Psych Affect: normal affect Coding Level of Care Code Off vis,est,prev 40-64yrs Diagnoses Encounter for gynecological examination without abnormal finding Z01.419 (more content not included)... Normal [facility] SCRN MAMM (CAD)W/WARRENWilliam Bender n 03-17-2024 SCRN MAMM (CAD)W/WARRENWilliam [facility] [address] [place] [address] SCRN MAMM (CAD)W/WARREN BILAT MR#: [id number] Acct: [id number] Name: ANT SNIDER Rep #: [id number] : 1965 F 58 From: Paul grossman MD PCP: Dr. Summer Maldonado, DO Status: [facility] Study: SCRN MAMM (CAD)W/WARREN BILAT Date of Exam: 12/01 Exam# [id number] Ordering Dr: Tahmina Nguyễn WATER MAIN INSTALLER HELPER WATER MAIN INSTALLER HELPER -C [id number] MAMMOGRAPHY - BILATERAL SCREENING REASON FOR EXAM: Female, 58 years old. Routine annual screening examination. PERTINENT HISTORY: Aunt with breast cancer. TECHNIQUE: Digital bilateral breast warren (3D mammographic acquisition) in the CC and MLO projections. 2-D mediolateral oblique (MLO) and craniocaudad (CC) views of both breasts were obtained. CAD: Full Field Digital Mammography with Computer Added Detection was performed. COMPARISON: Comparison is made with prior study March 16, 2023 and March 10, 2002. FINDINGS: Breast Composition: The breasts are extremely dense, which lowers the sensitivity of mammography. There are no dominant masses or suspicious calcifications. No other significant abnormalities are identified. There has been no significant change since the prior study. BI/SCRN MAMM (CAD)W/WARREN BILAT IMPRESSION: Stable bilateral screening mammogram. Yearly follow-up mammogram recommended. (A) ASSESSMENT CATEGORY: BIRADS Category 1: Negative. A letter regarding these results will be sent to the patient by the facility within 30 days. Approximately 10% of breast cancers are not detected by mammography. A normal mammogram should not delay biopsy of a clinically suspicious abnormality. [id number] Electronically Signed: Paul Neff MD at 8:49 EST , CC: KATLYN Nguyễn; Dr. Summer Maldonado DO Home Maker: Signed Normal [facility] Coronary Angiography CTon Coronary Angiography CT [facility] [address] [place] [address] 02/15/24 1442 MR#: [id number] Acct: [id number] Name: ANT SNIDER Rep #: [id number] : 1965 58 From: Perez Montalvo MD PCP: Dr. Summer Maldonado DO Status:REG CLI Y Location: CT Calcium Scoring Date of Study:: 02/15/24 Indications Indications: Fatigue Coronary Calcium Scoring: High-resolution Computed Tomographic imaging of the chest was performed on [02/15/24 ], with particular attention paid to the coronary arteries. Images from the examination were analyzed for the presence and extent of coronary artery calcification , using coronary calcium quantification software. The patient tolerated the procedure well and there were no complications. The results of the coronary calcification analysis are provided below. Findings Coronary Artery Left Main (LM): 0 Left Anterior Descending (LAD): 0 Left Circumflex (LCX): 0 Right Coronary Artery (RCA): 0 Total Agatston Score: 0 Percentile Rankin% Calcium Scoring Interpretation: Different methods to categorize the overall amount of coronary plaque. Overall amount CAC SIS Visual of coronary plaque P1 Mild -100 <2 1-2 vessels with mild amount of plaque P2 Moderate 101-300 3-4 1-2 vessels with moderate amount, 3 vessels with mild amount of plaque P3 Severe 301-999 5-7 3 vessels with moderate amount, 1 vessel with severe amount of plaque P4 Extensive >1000 >8 2-3 vessels with severe amount of plaque Conclusion: No atherosclerotic plaque noted 02/15/24 1443 Date Perez Selvin MD Cosigner Signature (if applicable): Date CC: Dr. Perez Montalvo MD; Dr. Summer Maldonado DO Signed Normal [facility] Limited Chest CT Cardiac Onl yon 02-15-[address] Cardiac Only [facility] [address] [place] [address] Cardiac Only MR#: [id number] Acct: [id number] Name: ANT SNIDER Rep #: [id number] : 1965 F 58 From: Paul grossman MD PCP: Dr. Summer Maldonado DO Status: REG CL Study: Limited Chest CT Cardiac Only Date of Exam: Exam# [id number] Ordering Dr: Summer Maldonado DO 2:[id number] STUDY: CT CHEST WITHOUT CONTRAST REASON FOR EXAM: Female, 58 years old. Other fatigue, limited chest over read only RADIATION DOSAGE (If Supplied By Facility): CTDIvol = ( 12.19 ) mGy, DLP = ( 195.04 ) mGycm TECHNIQUE: Transaxial imaging was performed without the administration of intravenous contrast material. Individualized dose optimization techniques were used for this CT. COMPARISON: No relevant priors. FINDINGS: CHEST There is evidence of scarring and bronchiectasis along the posterior aspect of the lingular segment of the left upper lobe abutting the left major fissure. There is no demonstrated pleural abnormality. Minimal calcification of the LAD. Normal mediastinum. Normal hilar regions. Normal unenhanced pulmonary arteries. Normal aorta arch and descending thoracic aorta. Normal osseous structures. There is no demonstrated abnormality of the visualized upper abdomen. CT/Limited Chest CT Cardiac Only IMPRESSION: Minimal degree of coronary calcification. Electronically Signed: Paul Neff MD at 12:51 EDT , CC: Dr. Summer Maldonado, Home Maker: Signed Normal [facility] Miscellaneous Lab Procedure 3on 02-08-2024 [facility] [facility] TEST 3 Normal [facility] Comment on above: Order Comment: LC 00 4100 Unconjugated DHEA SER/RF Result Comment: TEST RESULTS LIMITS Dehydroepiandrosterone (DHEA), 250 ng/dL 21-402 TESTING PERFORMED AT [facility]. ORIGINAL REPORT ON FILE IN LAB CONTAINS ADDITIONAL TEST SITE INFORMATION. Performed By: #### L 506.0400, L501.9520, L3300.6750, L500.4050, L501.21987, L503.6150, L100.0100, L503.6550, L503.0105, L3300.1500 #### [facility] [address] [place], [address] DHEA Sulfateon 01-26-2024 DHEA SULFATE 87.2 ug/dL Normal 29.4-220.5 [facility] Comment on above: Order Comment: Test( s) 859606-Jgrxcwd T3, Serumwas developed and its performance characteristicsdetermined by [employer]. It has not been cleared or approvedby the Food and Drug Administration.[place] Performed By: #### L 506.0400, L501.9520, L3300.6750, L500.4050, L501.72243, L503.6150, L100.0100, L503.6550, L503.0105, L3300.1500 #### [facility] [address] [facility]. [place], [place], [id number] Insulin Levelon 01-26-2024 INSULIN,FASTING 3.5 uIU/mL Normal 2.6-24.9 [facility] Comment on above: Order Comment: Test( s) 186220-Fbwnlpa T3, Serumwas developed and its performance characteristicsdetermined by [employer]. It has not been cleared or approvedby the Food and Drug Administration.[place] Result Comment: Perf ormed at: [address] [id number] Brick Setter: Santiago Matamoros PhD, Phone: [phone] Performed at: [address] [id number] Brick Setter: Melba Mathew MD, Phone: [phone] Performed By: #### L 506.0400, L501.9520, L3300.6750, L500.4050, L501.15243, L503.6150, L100.0100, L503.6550, L503.0105, L3300.1500 #### [facility] [address] [facility]. [place], [place], [id number] PROLACTIN 4465on 01-26-2024 PROLACTIN 8.6 ng/mL Normal 3.6-25.2 [facility] Comment on above: Order Comment: Test( s) 913641-Kuuzcmm T3, Serumwas developed and its performance characteristicsdetermined by [employer]. It has not been cleared or approvedby the Food and Drug Administration.[place] Performed By: #### L 506.0400, L501.9520, L3300.6750, L500.4050, L501.39424, L503.6150, L100.0100, L503.6550, L503.0105, L3300.1500 #### [facility] [address] [place], [place], [id number] T3 Reverseon 01-26-2024 T3 REVERSE 16.9 ng/dL Normal 9.2-24.1 [facility] Comment on above: Order Comment: Test( s) 597367-Yzqwtph T3, Serumwas developed and its performance characteristicsdetermined by [facility]. It has not been cleared or approvedby the Food and Drug Administration.[place] Performed By: #### L 506.0400, L501.9520, L3300.6750, L500.4050, L501.37462, L503.6150, L100.0100, L503.6550, L503.0105, L3300.1500 #### [facility] [address] [facility]. [place], [place], [id number] Testosterone, Total / Freeon 01-26-2024 TESTOSTER,FREE 0.12 ng/dL Normal 0.10-0.85 [facility] Comment on above: Order Comment: Test( s) 037090-Dsjdotj T3, Serumwas developed and its performance characteristicsdetermined by [facility]. It has not been cleared or approvedby the Food and Drug Administration.[place] Performed By: #### L 506.0400, L501.9520, L3300.6750, L500.4050, L501.73676, L503.6150, L100.0100, L503.6550, L503.0105, L3300.1500 #### [facility] [address] [place], [place], [address] [phone] TESTOSTERONE, T 9 ng/dL Normal 4-50 [facility] Comment on above: Order Comment: Test( s) 745930-Obuprha T3, Serumwas developed and its performance characteristicsdetermined by [facility]. It has not been cleared or approvedby the Food and Drug Administration.[place] Performed By: #### L 506.0400, L501.9520, L3300.6750, L500.4050, L501.47108, L503.6150, L100.0100, L503.6550, L503.0105, L3300.1500 #### [facility] [address] [facility] [place], [place], [id number] TESTOSTERONE,%F 1.38 Normal 0.50-2.80 [facility] Comment on above: Order Comment: Test( s) 142660-Pybetwf T3, Serumwas developed and its performance characteristicsdetermined by [employer]. It has not been cleared or approvedby the Food and Drug Administration.[place] Performed By: #### L 506.0400, L501.9520, L3300.6750, L500.4050, L501.68442, L503.6150, L100.0100, L503.6550, L503.0105, L3300.1500 #### [facility] [address] [facility] [place], [place], [id number] Thyroid Antibodieson 024 TG AB < 1.0 Normal 0.0-0.9 [facility] Comment on above: Order Comment: Test( s) 625221-Txgrpso T3, Serumwas developed and its performance characteristicsdetermined by [employer]. It has not been cleared or approvedby the Food and Drug Administration.[place] Result Comment: Thyr oglobulin Antibody measured by [employer] It should be noted that the presence of thyroglobulin antibodies may not be pathogenic nor diagnostic, especially at very low levels. The assay sales account leader has found that four percent of individuals without evidence of thyroid disease or autoimmunity will have positive TgAb levels up to 4 IU/mL. Performed By: #### L 506.0400, L501.9520, L3300.6750, L500.4050, L501.27279, L503.6150, L100.0100, L503.6550, L503.0105, L3300.1500 #### [facility] [address] [facility]. [place], [place], [id number] THYR PEROX AB 14 IU/mL Normal 0-34 [facility] Comment on above: Order Comment: Test( s) 411907-Jnpyjss T3, Serumwas developed and its performance characteristicsdetermined by [facility]. It has not been cleared or approvedby the Food and Drug Administration.[place] Performed By: #### L 506.0400, L501.9520, L3300.6750, L500.4050, L501.35998, L503.6150, L100.0100, L503.6550, L503.0105, L3300.1500 #### [facility] [address] [place], [place], [address] Miscellaneous Lab Procedureo n 01-25-2024 [facility] TEST Normal [facility] Comment on above: Order Comment: GEL Veronika [id number] DIHYDROTESTOSTERONE Result Comment: TEST RESULTS LIMITS Dihydrotestosterone 4.4 ng/dL This test was developed and its performance characteristics determined by [facility]. It has not been cleared or approved by the Food and Drug Administration. Reference Range: Adult Female: 4 - 22 TESTING PERFORMED AT [facility]. ORIGINAL REPORT ON FILE IN LAB CONTAINS ADDITIONAL TEST SITE INFORMATION. Performed By: #### L 506.0400, L501.9520, L3300.6750, L500.4050, L501.43069, L503.6150, L100.0100, L503.6550, L503.0105, L3300.1500 #### [facility] [address] [place], [place], [address] Miscellaneous Lab Procedure 2on 01-25-2024 [facility] TEST 2 [facility] Comment on above: Order Comment: ADD O N PLEASEGEL [id number] ESTRONE Result Comment: TEST RESULTS LIMITS Estrone, Serum 35 pg/mL Range Adult (Premenopausal) 27 - 231 Menstrual Cycle (1-10 days) 19 - 149 Menstrual Cycle (11-20 days) 32 - 176 Menstrual Cycle (21-30 days) 37 - 200 Adult (Postmenopausal) 0 - 125 TESTING PERFORMED AT [facility]. ORIGINAL REPORT ON FILE IN LAB CONTAINS ADDITIONAL TEST SITE INFORMATION. Performed By: #### L 506.0400, L501.9520, L3300.6750, L500.4050, L501.82527, L503.6150, L100.0100, L503.6550, L503.0105, L3300.1500 #### [facility] [address] [place], [address] CRP, High Sensitivity [id number] on 01-19-2024 CRP, HIGH SENS 0.64 mg/L Normal 0.00-3.00 [facility] Comment on above: Order Comment: N Result Comment: Rela tive Risk for Future Cardiovascular Event Low <1.00 Average 1.00 - 3.00 High >3.00 Performed By: #### L 506.0400, L501.9520, L3300.6750, L500.4050, L501.74293, L503.6150, L100.0100, L503.6550, L503.0105, L3300.1500 #### [facility] [address] [place], [address] L803.0600on 01-19-2024 HOMOCYSTEINE 7.0 umol/L Normal 0.0-14.5 [facility] Comment on above: Order Comment: N Performed By: #### L 506.0400, L501.9520, L3300.6750, L500.4050, L501.55003, L503.6150, L100.0100, L503.6550, L503.0105, L3300.1500 #### [facility] [address] [place], [address] PROGESTERONE 4317on 01-19-20 24 PROGESTERONE 0.1 ng/mL Normal . [facility] Comment on above: Order Comment: N Result Comment: Foll icular phase 0.1 - 0.9 Luteal phase 1.8 - 23.9 Ovulation phase 0.1 - 12.0 First trimester 11.0 - 44.3 Second trimester 25.4 - 83.3 Third trimester 58.7 - 214.0 Postmenopausal 0.0 - 0.1 Performed at: [address] [id number] Brick Setter: Santiago Matamoros PhD, Phone: [phone] Performed By: #### L 506.0400, L501.9520, L3300.6750, L500.4050, L501.99780, L503.6150, L100.0100, L503.6550, L503.0105, L3300.1500 #### [facility] [address] [place], [address] Estradiolon 01-18-2024 ESTRADIOL < 11.0 Normal [facility] Comment on above: Order Comment: N Result Comment: NORM AL REFERENCE RANGES FEMALE FOLLICULAR 21.4 - 164.8 pg/mL MID-CYCLE PEAK 49.9 - 367.2 pg/mL LUTEAL 40.2 - 259.0 pg/mL POST-MENOPAUSAL ON MHT <11.0 - 462.1 pg/mL NOT ON MHT <11.0 - 58.3 pg/mL MALE <11.0 - 52.5 pg/mL NOTE: [employer] HAS CONFIRMED THE DRUG FULVETRANT (FASLODEX) MAY CAUSE FALSELY ELEVATED ESTRADIOL RESULTS WHEN USING THIS TEST METHOD. IF PATIENT IS TAKING FULVESTRANT AN ALTERNATIVE METHOD SHOULD BE USED TO DETERMINE ESTRADIOL CONCENTRATION. Performed By: #### L 506.0400, L501.9520, L3300.6750, L500.4050, L501.50938, L503.6150, L100.0100, L503.6550, L503.0105, L3300.1500 #### [facility] [address] [place], [place], [id number] Follicle Stimulating Hormone on 01-18-2024 FSH 94.0 mIU/mL Normal [facility] Comment on above: Order Comment: N Result Comment: NORMAL REFERENCE RANGES FEMALE FOLLICULAR 2.3 - 12.6 mIU/mL MID-CYCLE PEAK 5.2 - 17.5 mIU/mL LUTEAL 1.7 - 12.9 mIU/mL POST-MENOPAUSAL ON MHT 5.9 - 72.8 mIU/mL NOT ON MHT 12.7 - 132.2 mlU/mL MALE 0.7 - 10.8 mIU/mL Performed By: #### L 506.0400, L501.9520, L3300.6750, L500.4050, L501.01201, L503.6150, L100.0100, L503.6550, L503.0105, L3300.1500 #### [facility] [address] [place], [place], [id number] [phone] Free T3on 01-18-2024 Free T3 [Mass/Vol] 3.0 pg/mL Normal 2.18-3.98 [facility] Comment on above: Order Comment: N Performed By: #### L 506.0400, L501.9520, L3300.6750, L500.4050, L501.93200, L503.6150, L100.0100, L503.6550, L503.0105, L3300.1500 #### [facility] [address] [place], [place], [id number] Hemoglobin A1con 01-18-2024 HbA1c (Bld) [Mass fraction] 5.4 % Normal 3.8-5.6 [facility] Comment on above: Result Comment: Norm al < 5.7 % Prediabetic 5.7 - 6.4 % Diabetic >or= 6.5 % Please note range changes. Performed By: #### L 506.0400, L501.9520, L3300.6750, L500.4050, L501.98345, L503.6150, L100.0100, L503.6550, L503.0105, L3300.1500 #### [facility] [address] [place], [address] Luteinizing Hormoneon 2023 LH 31.7 mIU/mL Normal [facility] Comment on above: Order Comment: N Result Comment: NORMAL REFERENCE RANGES FEMALE FOLLICULAR 1.9 - 26.2 mIU/mL MID-CYCLE PEAK 22.8 - 76.1 mIU/mL LUTEAL 0.6 - 16.6 mIU/mL POST-MENOPAUSAL ON MHT 1.1 - 52.4 mIU/mL NOT ON MHT 8.6 - 61.8 mIU/mL MALE 1.2 - 10.6 mIU/mL Performed By: #### L 506.0400, L501.9520, L3300.6750, L500.4050, L501.48031, L503.6150, L100.0100, L503.6550, L503.0105, L3300.1500 #### [facility] [address] [place], [place], [id number] T4 Free Directon 01-18-2024 T4 FREE DIRECT 1.07 ng/dL Normal 0.76-1.46 [facility] Comment on above: Order Comment: N Performed By: #### L 506.0400, L501.9520, L3300.6750, L500.4050, L501.24723, L503.6150, L100.0100, L503.6550, L503.0105, L3300.1500 #### [facility] [address] [place], [place], [id number] Thyroid Stim Hormone (TSH)on 01-18-2024 TSH 1.710 uIU/mL Normal 0.358-3.740 [facility] Comment on above: Order Comment: N Performed By: #### L 506.0400, L501.9520, L3300.6750, L500.4050, L501.99079, L503.6150, L100.0100, L503.6550, L503.0105, L3300.1500 #### [facility] [address] [place], [address] Vitamin D,25 Hydroxyon 01-17 Vitamin D 25-OH 82.9 ng/mL Normal [facility] Comment on above: Result Comment: Gabby min D 25(OH) Status Range Deficiency <20 ng/mL (50nmol/L) Insufficiency 20 - 30 ng/mL (50 - 75 nmol/L) Sufficiency 30 - 100 ng/mL (75 - 250 nmol/L) Toxicity >100 ng/mL (>250 nmol/L) Performed By: #### L 506.0400, L501.9520, L3300.6750, L500.4050, L501.15141, L503.6150, L100.0100, L503.6550, L503.0105, L3300.1500 #### [facility] [address] [place], [address] DHEA Sulfateon 12-09-2023 DHEA SULFATE 80.7 ug/dL Normal 29.4-220.5 [facility] Comment on above: Order Comment: N Performed By: #### L 506.0400, L501.9520, L3300.6750, L500.4050, L501.04240, L503.6150, L100.0100, L503.6550, L503.0105, L3300.1500 #### [facility] [address] [place], [address] Thyroid Antibodieson 024 TG AB < 1.0 Normal 0.0-0.9 [facility] Comment on above: Order Comment: N Result Comment: Thyr oglobulin Antibody measured by [employer] It should be noted that the presence of thyroglobulin antibodies may not be pathogenic nor diagnostic, especially at very low levels. The assay sales account leader has found that four percent of individuals without evidence of thyroid disease or autoimmunity will have positive TgAb levels up to 4 IU/mL. Performed at: [address] [id number] Brick Setter: Santiago Matamoros PhD, Phone: [phone] Performed By: #### L 506.0400, L501.9520, L3300.6750, L500.4050, L501.83159, L503.6150, L100.0100, L503.6550, L503.0105, L3300.1500 #### [facility] [address] [place], [place], [phone] THYR PEROX AB 12 IU/mL Normal 0-34 [facility] Comment on above: Order Comment: N Performed By: #### L 506.0400, L501.9520, L3300.6750, L500.4050, L501.01269, L503.6150, L100.0100, L503.6550, L503.0105, L3300.1500 #### [facility] [address] [place], [address] CBC W/Diff, Automatedon 11-09 Absolute Lymph 1.94 X10 3/uL Normal 0.83-4.51 [facility] Comment on above: Performed By: #### L 506.0400, L501.9520, L3300.6750, L500.4050, L501.58445, L503.6150, L100.0100, L503.6550, L503.0105, L3300.1500 #### [facility] [address] [place], [address] Absolute Neut 2.6 X10 3/uL Normal 2.0-7.7 [facility] Comment on above: Performed By: #### L 506.0400, L501.9520, L3300.6750, L500.4050, L501.52595, L503.6150, L100.0100, L503.6550, L503.0105, L3300.1500 #### [facility] [address], [address] Basophils/100 WBC (Bld) 0.6 % Normal 0-1 [facility] Comment on above: Performed By: #### L 506.0400, L501.9520, L3300.6750, L500.4050, L501.98308, L503.6150, L100.0100, L503.6550, L503.0105, L3300.1500 #### [facility] [address], [address] Eosinophils/100 WBC (Bld) 1.4 % Normal 0-5 [facility] Comment on above: Performed By: #### L 506.0400, L501.9520, L3300.6750, L500.4050, L501.95750, L503.6150, L100.0100, L503.6550, L503.0105, L3300.1500 #### [facility] [address] [place], [address] Erythrocyte distribution width (RBC) [Ratio] 13.0 % Normal 11.6-14.6 [facility] Comment on above: Performed By: #### L 506.0400, L501.9520, L3300.6750, L500.4050, L501.78724, L503.6150, L100.0100, L503.6550, L503.0105, L3300.1500 #### [facility] [address] [place], [address] Hematocrit (Bld) [Volume fraction] 38.3 % Normal 37-47 [facility] Comment on above: Performed By: #### L 506.0400, L501.9520, L3300.6750, L500.4050, L501.02388, L503.6150, L100.0100, L503.6550, L503.0105, L3300.1500 #### [facility] [address] [place], [address] Hemoglobin (Bld) [Mass/Vol] 12.4 g/dL Normal 12.0-15.0 [facility] Comment on above: Performed By: #### L 506.0400, L501.9520, L3300.6750, L500.4050, L501.06394, L503.6150, L100.0100, L503.6550, L503.0105, L3300.1500 #### [facility] [address] [place], [address] IG% 0.200 Normal 0.0-0.9 [facility] Comment on above: Result Comment: IG% - Immature Granulocytes (promyelocytes, myelocytes and metamyelocytes) > 1% indicates that a LEFT SHIFT is Present. Performed By: #### L 506.0400, L501.9520, L3300.6750, L500.4050, L501.33194, L503.6150, L100.0100, L503.6550, L503.0105, L3300.1500 #### [facility] [address] [place], [address] Lymphocytes/100 WBC (Bld) 38.3 % Normal 19-41 [facility] Comment on above: Performed By: #### L 506.0400, L501.9520, L3300.6750, L500.4050, L501.23829, L503.6150, L100.0100, L503.6550, L503.0105, L3300.1500 #### [facility] [address] [place], [address] MCH (RBC) [Entitic mass] 30.0 pg Normal 27.0-32.0 [facility] Comment on above: Performed By: #### L 506.0400, L501.9520, L3300.6750, L500.4050, L501.61972, L503.6150, L100.0100, L503.6550, L503.0105, L3300.1500 #### [facility] [address] [place], [address] MCHC (RBC) [Mass/Vol] 32.4 g/dL Normal 32-36 [facility] Comment on above: Performed By: #### L 506.0400, L501.9520, L3300.6750, L500.4050, L501.88025, L503.6150, L100.0100, L503.6550, L503.0105, L3300.1500 #### [facility] [address] [place], [address] MCV (RBC) [Entitic vol] 92.5 fL Normal 81-99 [facility] Comment on above: Performed By: #### L 506.0400, L501.9520, L3300.6750, L500.4050, L501.12607, L503.6150, L100.0100, L503.6550, L503.0105, L3300.1500 #### [facility] [address] [place], [address] Monocytes/100 WBC (Bld) 8.9 % Normal 0-10 [facility] Comment on above: Performed By: #### L 506.0400, L501.9520, L3300.6750, L500.4050, L501.69170, L503.6150, L100.0100, L503.6550, L503.0105, L3300.1500 #### [facility] [address] [place], [address] Neutrophils/100 WBC (Bld) 50.6 % Normal 47-70 [facility] Comment on above: Performed By: #### L 506.0400, L501.9520, L3300.6750, L500.4050, L501.39746, L503.6150, L100.0100, L503.6550, L503.0105, L3300.1500 #### [facility] [address] [place], [address] Nucleated RBC (Bld) [#/Vol] 0 10*3/uL Normal 0-5 [facility] Comment on above: Performed By: #### L 506.0400, L501.9520, L3300.6750, L500.4050, L501.52954, L503.6150, L100.0100, L503.6550, L503.0105, L3300.1500 #### [facility] [address] [place], [address] Platelet mean volume (Bld) [Entitic vol] 10.0 fL Normal 6.2-12.0 [facility] Comment on above: Performed By: #### L 506.0400, L501.9520, L3300.6750, L500.4050, L501.76752, L503.6150, L100.0100, L503.6550, L503.0105, L3300.1500 #### [facility] [address] [place], [address] Platelets (Bld) [#/Vol] 199 10*3/uL Normal 150-450 [facility] Comment on above: Performed By: #### L 506.0400, L501.9520, L3300.6750, L500.4050, L501.84994, L503.6150, L100.0100, L503.6550, L503.0105, L3300.1500 #### [facility] [address] [place], [address] RBC (Bld) [#/Vol] 4.14 10*6/uL Low 4.2-5.4 [facility] Comment on above: Performed By: #### L 506.0400, L501.9520, L3300.6750, L500.4050, L501.28509, L503.6150, L100.0100, L503.6550, L503.0105, L3300.1500 #### [facility] [address] [place], [address] RDW SD 44.1 fl High 35.1-43.9 [facility] Comment on above: Performed By: #### L 506.0400, L501.9520, L3300.6750, L500.4050, L501.00956, L503.6150, L100.0100, L503.6550, L503.0105, L3300.1500 #### [facility] [address] [place], [address] WBC (Bld) [#/Vol] 5.1 10*3/uL Normal 4.4-11.0 [facility] Comment on above: Performed By: #### L 506.0400, L501.9520, L3300.6750, L500.4050, L501.95786, L503.6150, L100.0100, L503.6550, L503.0105, L3300.1500 #### [facility] [address] [place], [place], [id number] Comprehensive Metabolic Prof [facility] 12-07-2023 Albumin [Mass/Vol] 3.7 g/dL Normal 3.2-5.0 [facility] Comment on above: Performed By: #### L 506.0400, L501.9520, L3300.6750, L500.4050, L501.80684, L503.6150, L100.0100, L503.6550, L503.0105, L3300.1500 #### [facility] [address] [place], [place], [phone] Albumin/Globulin [Mass ratio] 1.0 {ratio} Normal 0.9-2.4 [facility] Comment on above: Performed By: #### L 506.0400, L501.9520, L3300.6750, L500.4050, L501.94324, L503.6150, L100.0100, L503.6550, L503.0105, L3300.1500 #### [facility] [address] [place], [address] ALK P 75 U/L Normal 45-117 [facility] Comment on above: Performed By: #### L 506.0400, L501.9520, L3300.6750, L500.4050, L501.85531, L503.6150, L100.0100, L503.6550, L503.0105, L3300.1500 #### [facility] [address] [place], [address] ALT [Catalytic activity/Vol] 34 U/L Normal 13-56 [facility] Comment on above: Performed By: #### L 506.0400, L501.9520, L3300.6750, L500.4050, L501.11941, L503.6150, L100.0100, L503.6550, L503.0105, L3300.1500 #### [facility] [address] [place], [address] AST [Catalytic activity/Vol] 31 U/L Normal 15-37 [facility] Comment on above: Performed By: #### L 506.0400, L501.9520, L3300.6750, L500.4050, L501.42098, L503.6150, L100.0100, L503.6550, L503.0105, L3300.1500 #### [facility] [address] [place], [address] Bilirubin [Mass/Vol] 0.50 mg/dL Normal 0.20-1.00 [facility] Comment on above: Result Comment: For patients on eltrombopag therapy, use of Dimension [place] TBIL is not recommended. Performed By: #### L 506.0400, L501.9520, L3300.6750, L500.4050, L501.71800, L503.6150, L100.0100, L503.6550, L503.0105, L3300.1500 #### [facility] [address] [place], [address] BUN/CRE 24.6 RATIO High 10-20 [facility] Comment on above: Performed By: #### L 506.0400, L501.9520, L3300.6750, L500.4050, L501.15026, L503.6150, L100.0100, L503.6550, L503.0105, L3300.1500 #### [facility] [address] [place], [address] CA,Total 8.9 mg/dL Normal 8.5-10.1 [facility] Comment on above: Performed By: #### L 506.0400, L501.9520, L3300.6750, L500.4050, L501.49499, L503.6150, L100.0100, L503.6550, L503.0105, L3300.1500 #### [facility] [address] [place], [address] Chloride [Moles/Vol] 103 mmol/L Normal 98-107 [facility] Comment on above: Performed By: #### L 506.0400, L501.9520, L3300.6750, L500.4050, L501.47339, L503.6150, L100.0100, L503.6550, L503.0105, L3300.1500 #### [facility] [address] [place], [address] CO2 [Moles/Vol] 30.0 mmol/L Normal 21.0-32.0 [facility] Comment on above: Performed By: #### L 506.0400, L501.9520, L3300.6750, L500.4050, L501.74705, L503.6150, L100.0100, L503.6550, L503.0105, L3300.1500 #### [facility] [address] [place], [place], [id number] Creatinine [Mass/Vol] 0.81 mg/dL Normal 0.55-1.02 [facility] Comment on above: Result Comment: The validity of the calculated GFR GFRAA in patients over 70 years has not been determined. Clinical correlation is essential. Performed By: #### L 506.0400, L501.9520, L3300.6750, L500.4050, L501.04664, L503.6150, L100.0100, L503.6550, L503.0105, L3300.1500 #### [facility] [address] [place], [place], [phone] (294) EST GFR - AA 93 mL/min Normal >60 [facility] Comment on above: Result Comment: Afri can Syrian GFR Calc Performed By: #### L 506.0400, L501.9520, L3300.6750, L500.4050, L501.86478, L503.6150, L100.0100, L503.6550, L503.0105, L3300.1500 #### [facility] [address] [place], [place], [id number] GAP 4 Low 5-15 [facility] Comment on above: Performed By: #### L 506.0400, L501.9520, L3300.6750, L500.4050, L501.68212, L503.6150, L100.0100, L503.6550, L503.0105, L3300.1500 #### [facility] [address] [place], [place], [phone] (499) GFR/1.73 sq M.predicted among non-blacks MDRD (S/P/Bld) [Vol rate/Area] 77 mL/min/{1.73_m2} Normal >60 [facility] Comment on above: Result Comment: Non- GFR Calc Performed By: #### L 506.0400, L501.9520, L3300.6750, L500.4050, L501.11004, L503.6150, L100.0100, L503.6550, L503.0105, L3300.1500 #### [facility] [address] [place], [address] Globulin (S) [Mass/Vol] 3.8 g/dL Normal 2.2-4.2 [facility] Comment on above: Performed By: #### L 506.0400, L501.9520, L3300.6750, L500.4050, L501.92038, L503.6150, L100.0100, L503.6550, L503.0105, L3300.1500 #### [facility] [address] [place], [address] Glucose [Mass/Vol] 91 mg/dL Normal 74-106 [facility] Comment on above: Performed By: #### L 506.0400, L501.9520, L3300.6750, L500.4050, L501.65346, L503.6150, L100.0100, L503.6550, L503.0105, L3300.1500 #### [facility] [address] [place], [address] Potassium [Moles/Vol] 3.7 mmol/L Normal 3.5-5.1 [facility] Comment on above: Performed By: #### L 506.0400, L501.9520, L3300.6750, L500.4050, L501.40499, L503.6150, L100.0100, L503.6550, L503.0105, L3300.1500 #### [facility] [address] [place], [address] Sodium [Moles/Vol] 137 mmol/L Normal 136-145 [facility] Comment on above: Performed By: #### L 506.0400, L501.9520, L3300.6750, L500.4050, L501.88070, L503.6150, L100.0100, L503.6550, L503.0105, L3300.1500 #### [facility] [address] [place], [address] T PROT 7.5 g/dL Normal 6.4-8.2 [facility] Comment on above: Performed By: #### L 506.0400, L501.9520, L3300.6750, L500.4050, L501.34768, L503.6150, L100.0100, L503.6550, L503.0105, L3300.1500 #### [facility] [address] [place], [place], [phone] Urea nitrogen [Mass/Vol] 20 mg/dL High 7-18 [facility] Comment on above: Performed By: #### L 506.0400, L501.9520, L3300.6750, L500.4050, L501.09329, L503.6150, L100.0100, L503.6550, L503.0105, L3300.1500 #### [facility] [address] [place], [place], [phone] Ferritinon 12-07-2023 Ferritin [Mass/Vol] 46 ng/mL Normal 8-252 [facility] Comment on above: Performed By: #### L 506.0400, L501.9520, L3300.6750, L500.4050, L501.00500, L503.6150, L100.0100, L503.6550, L503.0105, L3300.1500 #### [facility] [address] [place], [place], [phone] Free T3on 12-07-2023 Free T3 [Mass/Vol] 2.8 pg/mL Normal 2.18-3.98 [facility] Comment on above: Performed By: #### L 506.0400, L501.9520, L3300.6750, L500.4050, L501.99349, L503.6150, L100.0100, L503.6550, L503.0105, L3300.1500 #### [facility] [address] [place], [place], [id number] Ironon 12-07-2023 Iron [Mass/Vol] 94 ug/dL Normal 50-170 [facility] Comment on above: Performed By: #### L 506.0400, L501.9520, L3300.6750, L500.4050, L501.55407, L503.6150, L100.0100, L503.6550, L503.0105, L3300.1500 #### [facility] [address] [place], [place], [id number] T4 Free Directon 12-07-2023 T4 FREE DIRECT 0.89 ng/dL Normal 0.76-1.46 [facility] Comment on above: Performed By: #### L 506.0400, L501.9520, L3300.6750, L500.4050, L501.84648, L503.6150, L100.0100, L503.6550, L503.0105, L3300.1500 #### [facility] [address] [place], [address] Thyroid Stim Hormone (TSH)on 12-07-2023 TSH 1.61 uIU/mL Normal 0.358-3.74 [facility] Comment on above: Performed By: #### L 506.0400, L501.9520, L3300.6750, L500.4050, L501.58627, L503.6150, L100.0100, L503.6550, L503.0105, L3300.1500 #### [facility] [address] [place], [place], [id number] Vitamin B12on 12-07-2023 Cobalamin (Vitamin B12) [Mass/Vol] 483 pg/mL Normal 211-911 [facility] Comment on above: Performed By: #### L 506.0400, L501.9520, L3300.6750, L500.4050, L501.00779, L503.6150, L100.0100, L503.6550, L503.0105, L3300.1500 #### [facility] [address] [place], [place], [id number] Cervical or vagninal specime n microscopic examination by cytology stain (reported asOrdered By: Clotilde Humphries on 03-16-2023 Cytology report Cyto stain Doc (Cvx/Vag) Comment . [facility] Comment on above: The Pap smear is a s creening test designed to aid in thedetection of premalignant and malignant conditions of theuterine cervix. It is not a diagnostic procedure andshould not be used as the sole means of detecting cervicalcancer. Both false-positive and false-negative reports dooccur. Detection in cervical specim en of any of human papilloma virus (HPV) 16, 18, 31, 33,Ordered By: Clotilde Humphries on 03-16-2023 HPV 16+18+31+33+35+39+45+ 51+52+56+58+59+66+68 DNA Probe+sig amp Ql (Cvx) Negative Negative [facility] Comment on above: This nucleic acid am plification test detects fourteen high- risk HPV types (16,18,31,33,35,39,45,51,52,56,58,59,66,68)without differentiation. Laboratory - CytologyOrdered By: Clotilde Humphries on 03-16-2023 Drum Straightener Cyto stain Nom (Cvx/Vag) [ID] Comment . [facility] Comment on above: Janusz Landaverdete chnologist (ASCP) Recommended follow-up Cyto stain Nom (Cvx/Vag) Comment . [facility] Comment on above: Suggest follow up as clinically appropriate. Laboratory - Miscellaneous t estsOrdered By: Clotilde Humphries on 03-16-2023 Service comment (Unsp spec) [Interp] Comment . [facility] Comment on above: This liquid based Th inPrep(R) pap test was screened withthe use of an image guided system. Service comment (Unsp spec) [Interp] . . [facility] Liquid-based cerv Pap + CT/G C by ELSA w reflex to high-risk HPV for ASCUSOrdered By: Clotilde Humphries on 03-16-2023 Cytology report Cyto stain.thin prep Doc (Cvx/Vag) Comment . [facility] Comment on above: Criteria not met, HP V Genotype not performed.Performed at: - [facility] [id number] Director: Sandra Moya MD, Phone: [phone] at: =G - [facility] [id number] Director: Sandra Moya MD, Phone: [phone] No Panel InformationOrdered By: Clotilde Humphries on 03-16-2023 Pap Smear Specimen Adequacy Comment . [facility] Comment on above: Specimen processed a nd examined, but unsatisfactory for evaluation ofepithelial abnormality because of excessive lubricant.Specimen processed and examined but unsatisfactory for evaluation ofepithelial abnormality because of insufficient cellularity. Pathology report final diagnosis Narrative Comment . [facility] Comment on above: UNSATISFACTORY FOR E VALUATION. COVID-19 virus antigen assay Ordered By: Dennis Freed on 01-05-2023 SARS-CoV-2 (COVID-19) Ag IA.rapid Ql (Resp) [facility] SARS-CoV-2 (COVID-19) Ag IA.rapid Ql (Resp) [facility] Basophil percentageOrdered B y: HEALTH ASSESSMENT on 11-06-2022 Cholesterol [Mass/Vol] 217 mg/dL <200 [facility] Comment on above: <200 mg/dL Desirable 200-240 mg/dL Borderline >240 mg/dL High Risk Glucose [Mass/Vol] 92 mg/dL 74-106 [facility] Triglyceride [Mass/Vol] 66 mg/dL <199 [facility] Comment on above: The drugs N-Acetylcy steine and Metamizole may falsely depress this assay.Serum Triglycerides Reference Interval Normal <150 mg/dL Borderline high 150 - 199 mg/dL High 200 - 499 mg/dL Very High > or = 500 mg/dL Serum or plasma cholesterol in HDL measurement (mass/volume)Ordered By: HEALTH ASSESSMENT on 11-06-2022 Cholesterol in HDL [Mass/Vol] 81 mg/dL >40 [facility] Comment on above: The drugs N-Acetylcy steine and Metamizole may falsely depress this assay. Reference Range HDL <40 mg/dL Low HDL Cholesterol HDL >or= 60 mg/dL High HDL Cholesterol Serum or plasma cholesterol in VLDL measurement (mass/volume)Ordered By: HEALTH ASSESSMENT on 11-06-2022 Cholesterol in VLDL [Mass/Vol] 13 mg/dL 5-40 [facility] Serum or plasma low density lipoprotein (LDL) cholesterol measurement (mass/volume)Ordered By: HEALTH ASSESSMENT on 11-06-2022 Cholesterol in LDL [Mass/Vol] 123 mg/dL 0-130 [facility] CNOVon 10-16-2022 CNOV Office Visit (ORTHWS ) ANT SNIDER ([id number]) 1965 F NFR Date Time Provider Department 10/16/22 1:45 PM KENDALL COOPER During your visit today, we recorded the following information about you: Kendall Cooper DO 10/16/2022 2:41 PM Signed Reason for Visit/Chief Complaint Ant Snider is a 57 year old female who presents today for a new evaluation of following complaint: Patient presents with: Left Wrist - New, Pain History of Present Illness: PAIN EVALUATION 10/16/2022 1344 Pain Level: 7 Pain Location: Wrist-Left Description: Sharp Duration Amount of Time: 3 Duration Units: Months Frequency: Continuous HPI: Ant Snider is a 57 year old female presenting today with Left wrist pain. Pain history is noted as above. No specific injury but states may have injured herself doing burpees and clean/jerks. Pain for 3 months. Feels better now, but still pain. Radially and dorsally. Denies calf pain, numbness, tingling, fever, chills or other constitutional symptoms. 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 Previous Treatments: Ice: No Heat: No Brace: Yes, wrist brace NSAIDs: Yes, advil Injections: No Surgeries: No Physical Therapy: No Review of Systems: Patient did not have, and does not currently have, any weight loss, malaise, fever, chills, headache, chest pain, chest pressure, palpitations, cough, shortness of breath, orthopnea, paroxsymal nocturnal dyspnea, nausea, vomiting, diarrhea, constipation, melena, hematochezia, urinary difficulties, prolonged bleeding, easily bruising, heat or cold intolerance, new onset joint pain or swelling, new onset extremity weakness or numbness, new onset auditory or visual disturbances, lightheadedness, dizziness, partial loss of consciousness or full loss of consciousness. Current Outpatient Medications on File Prior to Visit Medication Sig MINERALS ORAL Take by mouth. MINERAL DRINK- ZIJA cetirizine (ZYRTEC) 10 mg tablet Take 1 tablet by mouth once daily. calcium carbonate(CALTRATE 600 600 MG (1,500 MG) TAB) Take one(1) tablet daily. ascorbic acid(VITAMIN C 500 MG TAB) Take one(1) tablet daily. multivitamin tablet Take 1 tablet by mouth once daily. (Patient not taking: Reported on 10/16/2022) No current facility-administered medications on file prior to visit. ALLERGIES Allergen Reactions Hayfever [Homeopath* Physical Exam: Vitals: [facility] 11/09/2011 Psych: Pleasant, good affect and mood General Appearance: Well appearing, alert, in no acute distress, well-hydrated, well nourished.. Skin: Skin color, texture, turgor normal, no suspicious rashes or lesions. Peripheral Pulses: Normal. Neurologic: Gait normal. Reflexes normal and symmetric. Sensation grossly intact.. Lymph Nodes: No cervical lymphadenopathy, No supraclavicular lymphadenopathy, No axillary lymphadenopathy., and No inguinal lymphadenopathy.. Respiratory: No recent pulmonary infection, hemoptysis, chronic cough, or shortness of breath at rest Rheumatologic: Joint deformities: left wrist pain Right Hand Exam Right hand exam is normal. Tenderness The patient is experiencing no tenderness. Range of Motion The patient has normal right wrist ROM. Wrist Extension: normal Flexion: normal Pronation: normal Supination: normal Muscle Strength The patient has normal right wrist strength. Tests Phalen?s Sign: negative Tinel's sign (median nerve): negative Berenice's test: negative Other Erythema: absent Sensation: normal Pulse: present Comments: B/l med/uln/rad/ax nerves intact Left Hand Exam Tenderness The patient is experiencing tenderness in the radial area. Range of Motion The patient has normal left wrist ROM. Wrist Extension: normal Flexion: normal Pronation: normal Supination: normal Muscle Strength The patient has normal left wrist strength. Tests Phalen?s Sign: negative Tinel's sign (median nerve): negative Berenice's test: positive Other Erythema: absent Sensation: normal Pulse: present Imaging: Last XR Wrist - Impression Only XR WRIST GENERAL 3V PA/LAT/OBL LEFT Exam End: 10/15/2022 3:53 PM (In process) No SL widening Assessment and Plan: Impression: Encounter Diagnosis ICD-10-CM 1. Tenosynovitis, de Quervain M65.4 Plan: Today, in detail, through a thorough evaluation, we discussed possible etiologies of pain and our plans for further diagnostic and therapeutic interventions. We discussed strategies for decreasing pain and improving strength, stability and motion. Patient's questions were answered in detailed. Patient verbalizes understanding and agrees with the treatment plan as discussed. Wears brace- thumb spica at home Nsaids discussed Surgery option discussed Risks of injection discussed Left dequervain injection Additional Injections: L extensor co (more content not included)... Normal [facility] XR WRIST 3V PA/LAT/OBL LTon 10-15-2022 XR WRIST 3V PA/LAT/OBL LT * * *Final Report* * * DATE OF EXAM: Oct 15 2022 3:53PM [id number] - XR WRIST 3V PA/LAT/OBL LT / PROCEDURE REASON: Pain * * * * Physician Interpretation * * * * HISTORY: Pain TECHNIQUE: 3 views left wrist COMPARISON: None. RESULT: There is no acute fracture. Joint spaces are preserved. There are tiny osteophytes at the first CMC joint from minimal degenerative change. No radiopaque foreign body identified in the soft tissue. IMPRESSION: NO ACUTE BONY ABNORMALITY Home Maker: POLLY Transcribe Date/Time: Oct 17 2022 5:17P Dictated by : CAM PALMER MD This examination was interpreted and the report reviewed and electronically signed by: CAM PALMER MD on Oct 17 2022 5:18PM EST [id number] Normal [facility] XR WRIST GENERAL 3V PA/LAT/O BL LEFTon 10-15-2022 [facility] Basophil percentageon 2021 Cholesterol [Mass/Vol] 208 mg/dL <200 [facility] Work Phone: Comment on above: <200 mg/dL Desirable 200-240 mg/dL Borderline >240 mg/dL High Risk Glucose [Mass/Vol] 86 mg/dL 74-106 [facility] Work Phone: Triglyceride [Mass/Vol] 63 mg/dL <199 [facility] Work Phone: Comment on above: The drugs N-Acetylcy steine and Metamizole may falsely depress this assay.Serum Triglycerides Reference Interval Normal <150 mg/dL Borderline high 150 - 199 mg/dL High 200 - 499 mg/dL Very High > or = 500 mg/dL Serum or plasma cholesterol in HDL measurement (mass/volume)on 11-21-2021 Cholesterol in HDL [Mass/Vol] 74 mg/dL >40 [facility] Work Phone: Comment on above: The drugs N-Acetylcy steine and Metamizole may falsely depress this assay. Reference Range HDL <40 mg/dL Low HDL Cholesterol HDL >or= 60 mg/dL High HDL Cholesterol Serum or plasma cholesterol in VLDL measurement (mass/volume)on 11-21-2021 Cholesterol in VLDL [Mass/Vol] 13 mg/dL 5-40 [facility] Work Phone: Serum or plasma low density lipoprotein (LDL) cholesterol measurement (mass/volume)on 11-21-2021 Cholesterol in LDL [Mass/Vol] 121 mg/dL 0-130 [facility] Work Phone: SARS coronavirus RNA [Presen ce] in Unspecified specimen by ELSA with probe detectionon 05-17-2021 SARS-CoV RNA [facility]SA+probe Ql (Unsp spec) Not detected Not Detected [facility] Work Phone: Comment on above: This nucleic acid am plification test was developed and itsperformance characteristics determined by [facility]. Nucleic acid amplification tests include RT-PCR and TMA. This test has not been FDA cleared orapproved. This test has been authorized by FDA under anEmergency Use Authorization (EUA). This test is onlyauthorized for the duration of time the declaration thatcircumstances exist justifying the authorization of theemergency use of in vitro diagnostic tests for detection [id number] virus and/or diagnosis of COVID-19 infectionunder section 564(b)(1) of the Act, 21 U.S.C. 360bbb-3(b)(1), unless the authorization is terminated or revokedsooner.When diagnostic testing is negative, the possibility of afalse negative result should be considered in the contextof a patient's recent exposures and the presence ofclinical signs and symptoms consistent with COVID-19. Anindividual without symptoms of COVID-19 and who is notshedding SARS-CoV-2 virus would expect to have a negative(not detected) result in this assay. Vital Signs Date Time Vital Sign Value Performing Clinician Dipaki ryan 03-16-2023 15:00-0500 Body height 152.[address] Summer Maldonado Work Phone: [facility] 03-16-2023 15:00-0500 Body mass index (BMI) [Ratio] 23.8 kg/m2 Dr. Summer Maldonado Work Phone: [facility] 03-16-2023 15:00-0500 Body weight 55.[address] Summer Maldonado Work Phone: [facility] 03-16-2023 15:00-0500 Diastolic blood pressure 76 mm[Hg] Dr. Summer Maldonado Work Phone: [facility] 03-16-2023 15:00-0500 Systolic blood pressure 139 mm[Hg] Dr. Summer Maldonado Work Phone: [facility] 01-05-2023 19:18-0400 Body height 152.4 cm [facility] 01-05-2023 19:18-0400 Body mass index (BMI) [Ratio] 24 kg/m2 [facility] 01-05-2023 19:18-0400 Body temperature 99.3 [degF] [facility] 01-05-2023 19:18-0400 Body weight 55.9 kg [facility] 01-05-2023 19:18-0400 Diastolic blood pressure 70 mm[Hg] [facility] 01-05-2023 19:18-0400 Heart rate 100 /min [facility] 01-05-2023 19:18-0400 Respiratory rate 18 /min [facility] 01-05-2023 19:18-0400 SaO2% (BldA) [Mass fraction] 95 % [facility] 01-05-2023 19:18-0400 Systolic blood pressure 139 mm[Hg] [facility] 03-10-2022 15:39-0400 Body height 152.[address] Summer Maldonado Work Phone: [facility] Work Phone: 03-10-2022 15:38-0400 Body mass index (BMI) [Ratio] 25.7 kg/m2 Dr. Summer Maldonado Work Phone: [facility] Work Phone: 03-10-2022 15:38-0400 Body weight 59.[address] Summer Maldonado Work Phone: [facility] Work Phone: 03-10-2022 15:38-0400 Diastolic blood pressure 92 mm[Hg] Dr. Summer Maldonado Work Phone: [facility] Work Phone: 03-10-2022 15:38-0400 Systolic blood pressure 154 mm[Hg] Dr. Summer Maldonado Work Phone: [facility] Work Phone: 12-19-2021 15:51-0400 Body height 152.[address] Summer Maldonado Work Phone: [facility] Work Phone: 12-19-2021 15:51-0400 Body mass index (BMI) [Ratio] 25.6 kg/m2 Dr. Summer Maldonado Work Phone: [facility] Work Phone: 12-19-2021 15:51-0400 Body weight 59.[address] Summer Maldonado Work Phone: [facility] Work Phone: 12-19-2021 15:51-0400 Diastolic blood pressure 72 mm[Hg] Dr. Summer Maldonado Work Phone: [facility] Work Phone: 12-19-2021 15:51-0400 Heart rate 72 /min Dr. Summer Maldonado Work Phone: [facility] Work Phone: 12-19-2021 15:51-0400 Respiratory rate 16 /min Dr. Summer Maldonado Work Phone: [facility] Work Phone: 12-19-2021 15:51-0400 Systolic blood pressure 120 mm[Hg] Dr. 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 Summer Maldonado Work Phone: [facility] Work Phone: Start: 03-26-2023 End: 03-26-[address] Summer Maldonado Work Phone: [facility] Work Phone: Start: 03-16-2023 End: 03-16-[address] Summer Maldonado Work Phone: [facility] Work Phone: Start: 03-16-2023 End: 03-16-[address] Summer Maldonado Work Phone: [facility] Work Phone: Start: 01-05-2023 End: 01-05-2023 Emergency department patient visit [facility] Work Phone: Start: 11-06-2022 Registered Referred [facility] Work Phone: Start: 10-16-2022 End: 10-16-2022 ambulatory DEBORAH A FAST Facility:[facility] Start: 10-15-2022 End: 10-15-2022 ambulatory DEBORAH A FAST Facility:[facility] Start: 10-15-2022 End: 10-15-2022 Subsequent hospital visit by physician [facility] Work Phone: Radiology Comment on above: Pain [R52] Start: 09-18-2022 Orders Only Kendall chau DO Work Phone: Appointment Center Comment on above: Pain (Primary Dx) Start: 03-10-2022 End: 03-10-[address] Summer Maldonado Work Phone: [facility] Work Phone: Start: 03-10-2022 End: 03-10-[address] Summer Maldonado Work Phone: [facility] Start: 01-09-2022 Non-patient / Non-visit Dr. Summer Maldonado Work Phone: [facility] Start: 01-09-2022 End: 01-09-[address] Summer Maldonado Work Phone: [facility] Work Phone: Start: 01-09-2022 End: 01-09-[address] Summer Maldonado [facility] Start: 12-19-2021 End: 12-19-[address] Summer Maldonado Work Phone: [facility] Start: 11-21-[address] Summer watson Work Phone: [facility] Start: 09-05-2021 Non-patient / Non-visit Dr. Summer Maldonado Work Phone: [facility] Start: 09-05-2021 End: 09-05-[address] Summer Maldonado Work Phone[facility] Start: 05-17-2021 End: 05-17-[address] Summer Maldonado Work Phone: [facility]Laboratory, Specimen Procedures Date Procedure Procedure Detail Performing Clinician Start: 03-26-2023 Dual energy X-ray absorptiometry Dr. Summer Maldonado Work Phone: Start: 03-16-2023 Screening mammography Jeremie Maldonado Work Phone: Start: 01-05-2023 Plain chest X-ray Start: 01-05-2023 Viral antigen assay Start: 10-15-2022 Radex wrist complete minimum 3 views Kendall Johnstonkelvin DO Work Phone: Start: 03-10-2022 Screening mammography Jeremie Maldonado Work Phone: Start: 09-05-2021 Radionuclide imaging of perfusion of myocardium under exercise stress Dr. Summer Maldonado Work Phone: Start: 02-12-2017 Mammography Kendall martin DO Work Phone: Start: 12-21-2012 Colonoscopy Kendall martin DO Work Phone: Start: 11-27-2011 Lipid 1996 panel - S angel or Plasma Xr Mob Work Phone: Plan of Treatment Date Care Activity Detail Author Start: 03-16-2023 Liquid based cervica l cytology screening [facility] Start: 01-09-2023 Influenza vaccination C [facility] Start: 05-11-2022 DEPRESSION ASSESSMENT DEPRESSION ASS ESSMENT [facility] Start: 02-12-2018 Mammography [facility] Start: 06-17-2017 HPV TESTING HPV TESTING [facility] Start: 06-17-2017 PAP TESTING PAP TESTING [facility] Start: 11-26-2016 Lipid 1996 panel - S angel or Plasma Lipid Screening [facility] Start: 11-26-2016 LIPID SCREEN LIPID SCREEN [facility] Start: 06-24-2015 DIABETES SCREEN DIABETES SCREEN [facility] Start: 06-24-2015 Diabetes Screening Diabetes Screenin g [facility] Start: 2014 SHINGRIX VACCINE (1 of 2) SHINGRIX VACCINE (1 of 2) [facility] Start: 12-21-2013 Colonoscopy COLONOSCOPY [facility] Start: 12-21-2013 COLORECTAL CANCER SCREENING COLORECTAL CANCER SCREENING [facility] Start: 2009 COLOGUARD (FIT-DNA) COLOGUARD (FIT-D NA) [facility] Start: [address] COLONOGRAPHY [facility] Start: 2009 FECAL OCCULT BLOOD FECAL OCCULT BLOO D [facility] Start: 2009 SIGMOIDOSCOPY SIGMOIDOSCOPY [facility] Start: 1983 Urine microalbumin profile [facility] Start: 1982 HEPATITIS C SCREENING HEPATITIS C SC BING [facility] Start: 1982 HIV SCREENING HIV SCREENING [facility] Start: 1965 COVID-19 VACCINE (#1) COVID-19 VACCI NE (#1) [facility] Start: 1965 HEPATITIS B (1 of 3 - 3-dose series) HEPATITIS B (1 of 3 - 3-dose series) [facility] Start: 1965 Hepatitis B Vaccine (1 of 3 - 3-dose series) Hepatitis B Vaccine (1 of 3 - 3-dose series) [facility] Liquid based cervica l cytology screening [facility] Work Phone: Path report.final Dx Spec [facility] Patient Education ED Myalgias ED Viral Syndrome (Adult) [facility] Work Phone: Patient referral [facility] Work Phone: End: 10-18-2023 XR WRIST GENERAL 3V PA/LAT/OBL LEFT XR WRIST GENERAL 3V PA/LAT/OBL LEFT Radiology Routine Pain 1 Occurrences starting 09/18/2022 until 10/18/2023 [facility] Work Phone: Comment on above: 1 Occurrences starti ng 09/18/2022 until 10/18/2023 [facility] Payers Date Payer Category Payer Unknown [id number] 2023 Unknown [id number] 2023 Self-pay [id number] 2023 Unknown [id number] 2018 Private Health Insurance [facility] UMR CHOICE PLUS [id number] 2018-Present [phone] [address] [address] [place] [address] HMO [id number] 2009 Unknown [id number] Unknown [id number] Unknown [id number] Unknown [id number] Unknown [id number] Unknown [id number] Unknown [id number] Unknown [id number] Social History Date Type Detail Facility Start: 02-25-2021 End: 03-16-2023 Tobacco smoking status MNIS Unknown if ever smoked [facility] Start: 1965 Sex Assigned At Female [facility] Start: 09-17-2012 Tobacco smoking stat us MNIS Ex-smoker [facility] Work Phone: End: 09-18-1987 History of tobacco use Current smoker [facility] Work Phone: End: 09-18-1987 History of tobacco use Cigarette Smoker [facility] Work Phone: Start: 09-17-2012 Tobacco use and exposure Smoke less tobacco non-user [facility] Work Phone: Start: 08-04-2016 Alcohol intake 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 Cuca Cortes, Supervisory Software Development Engineer ([facility]) Comment on above: Madonna Cevallos Software Development Engineer ([facility]) 01-05-2023 Discharge summary Note Date/Time January 05, 2023 9:50pm [facility] Medical Records Department [address] [place] [address] Emergency Department Summary 01/05/23 MR#: [id number] Acct: [id number] Name: ANT SNIDER Rep #:[id number] : 1965 57 From: Dennis Freed MD PCP: Dr. Summer Maldonado, DO Status:REG ER Location: ED HPI History of Present Illness Chief Complaint: Shortness of Breath Informant: patient and spouse/S.O. Narrative Narrative: Patient presents with body aches and other symptoms. Patient states she had a slight sore throat for couple days but that is better. Then over the last days she has developed diffuse myalgias. She states she feels like a she got run over with a truck. She has had some congestion. She has had some cough but no productivity. She is not actually short of breath. She has had loss of appetite but no nausea vomiting diarrhea or abdominal pain. She has had a low-grade fever below 100. She does not know anyone else who is ill. What concerned her is that she took a nap today. When she woke up she wasmuch more achy all over. This concerned her. But now that she is up moving shefeels better. She took a COVID home test that was negative. No travel surgery immobilization personal family history of DVT or PE. Patient has no medical illness. She does have some allergies but no diabetes blood pressure heart disease pulmonary embolus. She is not on any long-term medications. [facility] Medical History Allergies Basal cell carcinoma (BCC) Chest pain Chronic headaches Lupus (systemic lupus erythematosus) Osteopenia Syncope Home Medications ascorbate calcium (vitamin C) 500 mg tablet 500 mg PO DAILY 02/20/20 [History Last Taken Unknown] calcium citrate 250 mg calcium-vitamin D3 5 mcg (200 unit) tablet (Citracal Regular) 1 tab PO TID 02/20/20 [History Last Taken Unknown] Allergy/AdvReac Type Severity Reaction Status Date / Time No Known Allergies Allergy Verified 01/05/23 19:21 Family History Father Diabetes Hypertension Mother Osteoporosis Cancer Pulmonary fibrosis Surgical History Hx of colonoscopy Social History Smoking Status: Former smoker alcohol intake: never substance use type: does not use caffeine: Yes frequency: 3-4 times per week seatbelt use: always do you feel safe at home: Yes additional social history: - Indra Gastelum Works from home ROS ROS ED Constitutional Constitutional ED: Reports chills, fever(s) and subjective Eyes Eyes: Denies change in vision ENT ENT ED: Reports rhinorrhea and sore throat; Denies ear pain Cardiovascular Cardiovascular: Denies chest pain, palpitations or racing heartbeat Respiratory/Chest Respiratory/Chest: Reports cough; Denies dyspnea Gastrointestinal Gastrointestinal: Denies abdominal pain, diarrhea, nausea or vomiting Genitourinary Genitourinary ED: Denies dysuria or urinary frequency Musculoskeletal Musculoskeletal: Reports arthralgias and myalgias Integumentary Denies rash Neurologic Neurologic: Denies headache(s), paresthesias or weakness Endocrine Endocrinology: Denies polydipsia or polyuria Hematologic/Lymphatic Hematologic/Lymphatic: Denies easy bleeding, easy bruising or lymphadenopathy Allergic/Immunologic Allergic/Immunologic ED: Denies urticaria EXAM Physical Exam Narrative Exam Narrative: Patient is awake alert appropriate no acute distress sitting comfortably in bed. HEENT shows no erythema. No sign of trauma. Mucous membranes are still moist. Eyes no icterus or injection. Neck is supple. No JVD. No meningismus. Lungs are clear bilaterally. Saturations are normal at 95% on room air showing no hypoxia. There is no pain with a deep breath. Heart is regular. Rate of about 85 on my exam. No murmur gallop rub or muffledtones. Peripheral pulses are normal x4. Abdomen is soft and completely nontender. Again, she has lack of interest in food but no pain nausea vomiting or diarrhea at this time. There is no CVA or suprapubic tenderness. Extremities show no edema or cords. No swollen joints. Skin shows no rashes or pallor. No jaundice. Const Vital Signs: 01/05/23 19:18 Temperature 99.3 F H Temperature Source Temporal Pulse Rate 100 Respiratory Rate 18 Blood Pressure 139/70 H Blood Pressure Mean 93 Pulse Ox 95 Oxygen Delivery Method Room Air MDM MDM MDM Narrative Medical decision making narrative: Patient presents with symptoms consistent with a viral illness. She has congestion cough loss of appetite and diffuse myalgias. She has negative COVID here and negative at home. My independent interpretation the patient's single view AP chest x-ray shows no acute process. Final reading is stable chest, no visualized acute focal infiltrate. I do not think further work-up is needed at this point. Patient is feeling better. We discussed maintaining fluids, diet, Tylenol. If she develops specific symptoms of focal pain, trouble breathing, sputum production, hemoptysis or other issues she should return. But at this point I do not think blood work or further work-up is needed. Radiography Diagnostic Testing: Clinical Impression(s) from Imaging Studies Chest X-Ray 01/05/23 19:57 IMPRESSION: Stable chest, no visualized acute focal infiltrate. Electronically Signed: Rosalia Manzano MD at 20:24 EDT Reading Location ID and State: [facility] / [place] Tel , Service support , Discharge Plan Triage Chief Complaint: Shortness of Breath ED Provider: Dennis Freed Dx/Rx/DC Orders Clinical Impression: Myalgia, Loss of appetite, Acute viral syndrome Instructions: ED Myalgias, ED Viral Syndrome (Adult) Prescriptions: No Action calcium citrate 250 mg calcium-vitamin D3 200 unit tablet 250 mg calcium- 200 unit tablet 1 tab PO TID ascorbate calcium (vitamin C) 500 mg tablet 500 mg PO DAILY Primary Care Provider: Summer Maldonado Referrals: Summer Maldonado DO [Primary Care Provider] - 3-5 Days if not improving Disposition Disposition: Home, Self Care What to do if you have Problems For any increased pain, shortness of breath, bleeding, nausea or vomiting, chestpain, or any unexpected problems, contact your Primary Care Provider. Call [facility] ([phone]) or report to the closest Emergency Room. Call 911 if necessary. 01/05/232149 <Electronically signed by Dennis Freed MD> Cosigner Signature (if applicable): CC: Dr. Summer Maldonado, DO ~ Signed [facility] Work Phone: [phone] 145-412806-08-2023 NoteHNO ID: [id number] Author: Kendall Cooper DO Service: ? Author Type: Physician Type: Progress Notes Filed: 10/16/2022 2:41 PM Note Text: Reason for Visit/Chief Complaint Ant Snider is a 57 year old female who presents today for a new evaluation of following complaint: Patient presents with: Left Wrist - New, Pain History of Present Illness: PAIN EVALUATION 10/16/2022 1344 Pain Level: 7 Pain Location: Wrist-Left Description: Sharp Duration Amount of Time: 3 Duration Units: Months Frequency: Continuous HPI: Ant Snider is a 57 year old female presenting today with Left wrist pain. Pain history is noted as above. No specific injury but states may have injured herself doing burpees and clean/jerks. Pain for 3 months. Feels better now, but still pain. Radially and dorsally. Denies calf pain, numbness, tingling, fever, chills or other constitutional symptoms. 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 Previous Treatments: Ice: No Heat: No Brace: Yes, wrist brace NSAIDs: Yes, advil Injections: No Surgeries: No Physical Therapy: No Review of Systems: Patient did not have, and does not currently have, any weight loss, malaise, fever, chills, headache, chest pain, chest pressure, palpitations, cough, shortness of breath, orthopnea, paroxsymal nocturnal dyspnea, nausea, vomiting, diarrhea, constipation, melena, hematochezia, urinary difficulties, prolonged bleeding, easily bruising, heat or cold intolerance, new onset joint pain or swelling, new onset extremity weakness or numbness, new onset auditory or visual disturbances, lightheadedness, dizziness, partial loss of consciousness or full loss of consciousness. Current Outpatient Medications on File Prior to Visit Medication Sig MINERALS ORAL Take by mouth. MINERAL DRINK- ZIJA cetirizine (ZYRTEC) 10 mg tablet Take 1 tablet by mouth once daily. calcium carbonate(CALTRATE 600 600 MG (1,500 MG) TAB) Take one(1) tablet daily. ascorbic acid(VITAMIN C 500 MG TAB) Take one(1) tablet daily. multivitamin tablet Take 1 tablet by mouth once daily. (Patient not taking: Reported on 10/16/2022) No current facility-administered medications on file prior to visit. ALLERGIES Allergen Reactions Hayfever [Homeopath* Physical Exam: Vitals: LMP 11/09/2011 Psych: Pleasant, good affect and mood General Appearance: Well appearing, alert, in no acute distress, well-hydrated, well nourished.. Skin: Skin color, texture, turgor normal, no suspicious rashes or lesions. Peripheral Pulses: Normal. Neurologic: Gait normal. Reflexes normal and symmetric. Sensation grossly intact.. Lymph Nodes: No cervical lymphadenopathy, No supraclavicular lymphadenopathy, No axillary lymphadenopathy., and No inguinal lymphadenopathy.. Respiratory: No recent pulmonary infection, hemoptysis, chronic cough, or shortness of breath at rest Rheumatologic: Joint deformities: left wrist pain Right Hand Exam Right hand exam is normal. Tenderness The patient is experiencing no tenderness. Range of Motion The patient has normal right wrist ROM. Wrist Extension: normal Flexion: normal Pronation: normal Supination: normal Muscle Strength The patient has normal right wrist strength. Tests Phalen?s Sign: negative Tinel's sign (median nerve): negative Berenice's test: negative Other Erythema: absent Sensation: normal Pulse: present Comments: B/l med/uln/rad/ax nerves intact Left Hand Exam Tenderness The patient is experiencing tenderness in the radial area. Range of Motion The patient has normal left wrist ROM. Wrist Extension: normal Flexion: normal Pronation: normal Supination: normal Muscle Strength The patient has normal left wrist strength. Tests Phalen?s Sign: negative Tinel's sign (median nerve): negative Berenice's test: positive Other Erythema: absent Sensation: normal Pulse: present Imaging: Last XR Wrist - Impression Only XR WRIST GENERAL 3V PA/LAT/OBL LEFT Exam End: 10/15/2022 3:53 PM (In process) No SL widening Assessment and Plan: Impression: Encounter Diagnosis ICD-10-CM 1. Tenosynovitis, de Quervain M65.4 Plan: Today, in detail, through a thorough evaluation, we discussed possible etiologies of pain and our plans for further diagnostic and therapeutic interventions. We discussed strategies for decreasing pain and improving strength, stability and motion. Patient's questions were answered in detailed. Patient verbalizes understanding and agrees with the treatment plan as discussed. Wears brace- thumb spica at home Nsaids discussed Surgery option discussed Risks of injection discussed Left dequervain injection Additional Injections: L extensor compartment 1 for de Quervain's tenosynovitis Informed Consent Consent Obtained: Verbal [place] Protocol A moment to CARE was completed. SIGN IN Personnel directly involved with the (more content not included)...[facility]06-07-2023 NoteHNO ID: [id number] Author: RT Norman(Keyla) Service: ? Author Type: Technologist Type: Progress Notes Filed: 10/15/2022 3:54 PM Note Text: Radiology Service Progress Note PATIENT NAME: Ant Snider DATE OF SERVICE: October 15, 2022 TIME: 3:49 PM PATIENT IDENTITY VERIFICATION COMPLETED USING TWO (2) IDENTIFIERS: Name and Date of confirmed by patient verbally. FALL SCREENING: Has the patient had 2 falls in the last year or 1 fall with injury or currently using an Ambulatory Assistive Device (Walker, Cane, Wheelchair, Crutches, etc.)? No PATIENT GENDER DATA: Female. status: : No status: NO. PATIENT RELEVANT IMPLANT DATA REVIEWED: Not Applicable RADIOLOGY DEPARTMENT: General X-ray: Exam(s) Completed: Upper Extremity X-Ray(s): Wrist, left PERIPHERAL IV DATA: Not applicable SIGNED BY: RT Norman(R) October 15, 2022 3:49 [facility]06-07-2023 History of Present illness Narrative* Gio Saldana RT(R) - 10/15/2022 3:20 PM EDT Radiology Service Progress Note PATIENT NAME: Ant Snider DATE OF SERVICE: October 15, 2022 TIME: 3:49 PM PATIENT IDENTITY VERIFICATION COMPLETED USING TWO (2) IDENTIFIERS: Name and Date of confirmedby patient verbally. FALL SCREENING: Has the patient had 2 falls in the last year or 1 fall with injury or currently using an Ambulatory Assistive Device (Walker, Cane, Wheelchair, Crutches, etc.)? No PATIENT GENDER DATA: Female. status: : No status: NO. PATIENT RELEVANT IMPLANT DATA REVIEWED: Not Applicable RADIOLOGY DEPARTMENT: General X-ray: Exam(s) Completed: Upper Extremity X- Ray(s): Wrist, left PERIPHERAL IV DATA: Not applicable SIGNED BY: RT Norman(R) October 15, 2022 3:49 PM documented in [facility] NoteHNO ID: [id number] Author: Jose Mcmillan Service: ? Author Type: ? Type: Progress Notes Filed: 09/18/2022 12:58 PM Note Text: [facility]2023 NoteHNO ID: [id number] Author: Jose Mcmillan Service: ? Author Type: ? Type: Progress Notes Filed: 09/18/2022 12:55 PM Note Text: Left wrist painPar[facility]-2023 History of Present illness Narrative* Jose Mcmillan - 09/18/2022 12:55 PM EDT Left wrist pain documented in this encounterProm[facility] History of Present illness Narrative* Jose Mcmillan - 09/18/2022 12:54 PM EDT Left wrist pain documented in this encounterPromedica [facility] HospitalEvaluchristianacare noteNo assessment information availableWGreen Cross Hospital Work Phone: Evaluation note* Diagnosis Onset Date Resolution Status Chest pain acute Syncope acute [facility] Work Phone: Evaluation note* Diagnosis Onset Date Resolution Status Chest pain acute Syncope acute Encounter for routine gynecological examination noneactive [facility] Work Phone: Evaluation note* Diagnosis Pain- Primary Generalized pain documented in this encounter [facility]* Diagnosis Pain Generalized pain documented in this encounter [facility]* Diagnosis Onset Date Resolution Status Encounter for routine gynecological examination noneactive [facility] Work Phone: Reason for referral (narrative)* Diagnostic Procedure Only (Routine) - Authorized Specialty Diagnoses / Procedures Referred By Contac t Referred To Contact XR IMAGING Diagnoses Pain Procedures XR WRIST GENERAL 3V PA/LAT/OBL LEFT RADEX WRIST COMPLETE MINIMUM 3 VIEWS Kendall Cooper DO [address] [place] [address] Xr Imaging Referral ID Status Reason Start Date Expiration Date Visits Requested Visits Authorized [id number] Authorized Auto-Generat ed Referral 09/18/2022 10/18/2023 1 1 [facility] for referral (narrative)* Diagnostic Procedure Only (Routine) - Closed Specialty Diagnoses / Procedures Referred By Contac t Referred To Contact XR IMAGING Diagnoses Pain Procedures XR WRIST GENERAL 3V PA/LAT/OBL LEFT RADEX WRIST COMPLETE MINIMUM 3 VIEWS Kendall Cooper DO [address] [place] [address] [place] [address] Referral ID Status Reason Start Date Expiration Date V isits Requested Visits Authorized [id number] Closed Auto-Generate d Referral 09/18/2022 10/18/2023 1 1 [facility] for visit Narrative* Diagnostic Procedure Only (Routine) - Closed Specialty Diagnoses / Procedures Referred By Contac t Referred To Contact XR IMAGING Diagnoses Pain Procedures XR WRIST GENERAL 3V PA/LAT/OBL LEFT RADEX WRIST COMPLETE MINIMUM 3 VIEWS Kendall Cooper DO [address] [place] [address] [place] [address] Referral ID Status Reason Start Date Expiration Date V isits Requested Visits Authorized [id number] Closed Auto-Generate d Referral 09/18/2022 10/18/2023 1 1 [facility] Chief Complaint and Reason for Visit Chief Complaint COVID DRIVE THRU JOAQUINA T EKG CHANGE, SYNCOPAL EPISODE EKG CHANGE, SYNCOPAL EPISODE Chief Complaint syncope/cp/ref. adelina s SYNCOPE Reason for Visit Chest pain Syncope Chief Complaint syncope/cp/ref. adelina s SYNCOPE SCREENING Annual ([place]) Reason for Visit Chest pain Syncope Encounter for routine gynecological examination Chief Complaint sob Chief Complaint sob SCREENING Annual ([place]) Reason for Visit Encounter for routin e gynecological examination Chief Complaint sob SCREENING Annual ([place]) OSTEO Reason for Visit Encounter for routin e gynecological examination Family History No Family History Records Found Relationship Condition Age at Onset Recorded Date/T dane father Diabetes mellitus Unknown Hypertension Unknown mother Osteoporosis Unknown Malignant neoplasm Unknown Fibrosis of lung Unknown Advance Directives No Advanced Directives Records Found Advance Directive Response Recorded Date/ Time Living Will No July 22, 2016 3:44pm Power of Director Of Property Management No July 22 3:44pm Advance Directive Response Recorded Date/ Time Living Will No July 22, 2016 2:44pm Power of Director Of Property Management No July 22 17 2:44pm Advance Directive Response Recorded Date/ Time Living Will No January 05 3 8:17pm Power of Director Of Property Management No January 05, 2 023 8:17pm Advance Directive Response Recorded Date/ Time Living Will No January 05 3 7:17pm Power of Director Of Property Management No January 05, 2 023 7:17pm Summary Purpose Additional Source Comments Goals (unrecognized section and content) Goals may be documented in a n alternate sectionGoals may be documented in an alternate sectionGoals may be documented in an alternate sectionGoals may be documented in an alternate sectionGoals may be documented in an alternate sectionGoals may be documented in an alternate section Source Comments (unrecognize d section and content) In the event this informatio n is protected by the Federal Confidentiality of Alcohol and Drug Abuse Patient Records regulations: The Federal rules restrict any use of the information to criminally investigate or prosecute any alcohol or drug abuse patient.[facility] HospitalIn the event this information is protected by the Federal Confidentiality of Alcohol and Drug Abuse Patient Records regulations: The Federal rules restrict any use of the information to criminally investigate or prosecute any alcohol or drug abuse patient.[facility] HospitalIn the event this information is protected by the Federal Confidentiality of Alcohol and Drug Abuse Patient Records regulations: The Federal rules restrict any use of the information to criminally investigate or prosecute any alcohol or drug abuse patient.[facility] Care Teams (unrecognized sec tion and content) Welcome Wagon Host/Hostess Relationship Specialty Start Date End Date Jorje Deborah DO Brad [address] [place] [address] PCP - General 11/03/03 Welcome Wagon Host/Hostess Relationship Specialty Start Date End Date Deborah Recinos DO [address] [place] [address] PCP - General 11/03/03 Team Status: Active Member Role Status Dates Dr. Summer Maldonado DO Family Provider Active Dr. Summer Maldonado , DO Primary Care Provider Active Team Status: Active Member Role Status Dates Dr. Summer Maldonado DO Primary Care Provider Active Health Risk Assessment Attending Provider Active Team Status: Inactive Member Role Status Dates Dr. Summer Maldonado DO Primary Care Provider Active Dr. Dennis Freed MD Emergency Provider Active Welcome Wagon Host/Hostess Relationship Specialty Start Date End Date Deborah Recinos DO [address] [place] [address] PCP - General 11/03/03 Team Status: Inactive Member Role Status Dates Dr. Summer Maldonado DO Primary Care Provider, Referring P negro Active Dr. Clotilde Humphries MD Attending Provider Active Team Status: Inactive Member Role Status Dates Dr. Summer Maldonado DO Primary Care Provider Active Dr. Dennis Freed MD Attending Provider, Emergency Provider Active Team Status: Inactive Member Role Status Dates Dr. Summer Maldonado DO Primary Care Provide r, Attending Provider, Referring Provider Active INFORMATION SOURCE (unrecogn ized section and content) DATE CREATED AUTHOR 10/21/2022 [facility] DATE CREATED AUTHOR AUTHOR'S ORGANIZ ATION 07/29/2024 [facility] FOR RECORDS PERTAINING TO PATIENTS WHO ARE OR HAVE BEEN ENROLLED IN A CHEMICAL DEPENDENCY/SUBSTANCEABUSE PROGRAM, SOME INFORMATION MAY BE OMITTED. This clinical summary was aggregated from multiple sources. Caution should be exercised in using it in the provision of clinical care. This summary normalizes information from multiple sources, and as a consequence, information in this document may materially change the coding, format and clinical context of patient data. In addition, data may be omitted in some cases. CLINICAL DECISIONS SHOULD BE BASED ON THE PRIMARY CLINICAL RECORDS. [employer] [facility]. provides no warranty or guarantee of the accuracy or completeness of information in this document.
[2025-01-27 09:11] LABS: Hematocrit 39.6 % (37-47); Hemoglobin 12.8 g/dL (12.0-15.0); Immature Granulocytes Count 0.020 X10^3/uL (0.0-0.0); Mean Corp Hgb Conc 32.3 g/dL (32-36); Mean Corpuscular Volume 91.2 fL (81-99); Mean Platelet Vol. 9.6 fl (6.2-12.0); NRBC Flagged by Analyzer 0 % (0-5); Platelet Count 188 K/mm3 (150-450); RBC Distribution Width CV 12.3 % (11.6-14.6); RBC Distribution Width SD 40.8 fl (35.1-43.9); Red Blood Count 4.34 M/mm3 (4.2-5.4); White Blood Count 5.5 K/mm3 (4.4-11.0)
[2025-01-27 09:46] LABS: Anion Gap 10 (5-15); BUN 15 mg/dL (4-19); BUN/Creat Ratio 17.8 RATIO (10-20); Calcium,Total 9.3 mg/dL (7.6-11.0); Carbon Dioxide 25.2 mmol/L (21.0-32.0); Chloride 102 mmol/L (98-108); Glucose 98 mg/dL (70-99); Potassium 4.2 mmol/L (3.3-5.1)
== END | disposition home or self-care (01) ==
PROVIDERS: PCP Family Medicine; Referring Provider Student in an Organized Health Care Education/Training Program; Visit Provider Student in an Organized Health Care Education/Training Program
DX: Z01.818 Encounter for other preprocedural examination (principal)
CPT/HCPCS: 36415; 80048; 85025; 93005

== ENCOUNTER → 2025-04-05 | Outpatient (CLI) | payer OTHER, SELFPAY ==
--- NOTE | 2025-04-05 07:15 | BI_ITS ---
EXAM: SCRN MAMM (CAD)W/WARREN BILAT DATE: 04/05/2025 CLINICAL HISTORY: F, Age 59 y/o , SCREEN FOR BREAST CANCER Aunt with breast cancer. TECHNIQUE: Procedure Code: [id number] Modality: MG Procedure: SCRN MAMM (CAD)W/WARREN BILAT COMPARISON: Prior exam(s) dated March 17, 2024.. FINDINGS: TISSUE DENSITY: The breasts are extremely dense, which lowers the sensitivity of mammography. Bilateral Breast Mammographic Findings: No significant masses, calcifications or other abnormalities are identified. No suspicious masses, areas of developing architectural distortion, or suspicious calcifications. There has been no significant interval change. BI/SCRN MAMM (CAD)W/WRAREN BILAT IMPRESSION: Stable bilateral screening mammogram. OVERALL FINAL ASSESSMENT BI-RADS 1: NEGATIVE. RECOMMENDATION: Routine annual follow-up in 1 Year Additional Recommendation none A letter with findings and recommendations will be mailed to the patient. Reading Location: [place] [address]
--- OUTSIDE RECORDS SUMMARY | 2025-04-05 07:24 | XMS RPT_ITS | CCD ---
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 Summer Maldonado Primary Care Provider Dr. Summer Maldonado Referring Provider Dr. Shikha Martinez Attending Provider Dr. Summer Maldonado Other Provider Dr. Fred Pleitez Attending Provider Dr. Summer Maldonado Primary Care Provider [phone] Dr. Summer Maldonado Referring Provider [phone] Fred Pleitez Attending Provider Dr. Summer Maldonado Primary Care Provider Dr. Summer Maldonado Referring Provider Dr. Fred Pleitez Attending Provider Dr. Clotilde Humphries Attending Provider [phone] Fast DO, Deborah A Primary Care Provider [phone] FAST, DEBORAH A Primary Care Unavailable KENDALL COOPER Attending Unavailab le FAST, DEBORAH A Primary Care Unavailable KENDALL COOPER Referring Unavailab le Fast DO, Deborah A Primary Care Provider Dr. Summer Maldonado Primary Care Provider [phone] Dr. Summer Maldonado Referring Provider [phone] Clotilde Humphries Attending Provider [phone] Dr. Summer Maldonado DO Primary Care Physician Dr. Dewayne Harrison DO Attending Physician [phone] Dr. Dewayne Harrison DO Referring Provider [phone] Selvin MANN, Dr. Todd Attending Physician Malys, Summer Primary Care Unavailable Delma METEOROLOGY PROFESSOR, Tahmina Attending Unavailable Malys, Summer Primary Care Unavailable Dewayne Harrison Attending Unavailable Dewayne Harrison Referring Unavailable Malys, Summer Primary Care Unavailable Dewayne Harrison Attending Unavailable Malys, Summer Primary Care Unavailable Darcy Ham Attending Unavailable Jitendra, Darcy Referring Unavailable Malys, Summer Primary Care Unavailable Malys, Summer Referring Unavailable Delma METEOROLOGY PROFESSOR, Tahmina Attending Unavailable Allergies Allergy Classification Reported Allergen(s) Allergy Type Date of Onset Reaction(s) Facility (4 sources) Homeopathic Products; Translations: [HOMEOPATHIC PRODUCTS] Propensity to adverse reactions 03-27-2006 [facility] Work Phone: Medications Current Medications Medication Drug Class(es) Dates Sig (Normalized) Sig (Original) calcium ascorbate 500 mg oral tablet (7 sources) Start: 02-20-2020 take 1 tablet by mouth once daily calcium citrate 1190 mg / cholecalciferol 0.005 mg oral tablet (7 sources) Vitamin D Start: 02-20-2020 84 hr estradiol 0.06581 mg/hr transdermal system (1 source) Estrogen Start: 04-25-2024 apply 1 dose transdermal route two times weekly, then apply 1 dose transdermal route once progesterone 100 mg oral capsule (1 source) Progesterone Start: 04-25-2024 take 1 capsule by mouth at bedtime Completed/Discontinued Medications Medication Drug Class(es) Dates Sig (Normalized) Sig (Original) ascorbic acid 500 mg oral tablet (3 sources) Vitamin C Start: 03-29-2009 ascorbic acid(VITAMIN C 500 MG TAB) Take one(1) tablet daily. 0 03/29/2009 Active Comment on above: Take one(1) tablet d aily. calcium carbonate 1500 mg oral tablet (10 sources) Start: 03-29-2009 End: 11-29-2018 take 1 tablet by mouth once daily Calcium Carbonate 600 MG tablet Discontinued 600 mg PO DAILY July 22, 2016 12:00am November 29, 2018 2:15pm Comment on above: Take one(1) tablet d [...] Active Comment on above: Take by mouth. BIOLOGICAL TECHNICAL OFFICER AL DRINK- ZIJA multivitamin (DAILY VITAMIN) tablet (2 sources) Start: 06-24-2012 take 1 tablet by mouth once daily multivitamin (DAILY VITAMIN) tablet Take 1 tablet by mouth once daily. 0 06/24/2012 Active Comment on above: Take 1 tablet by maya th once daily. Multivitamin 1 EACH tablet (1 source) Start: 07-22-2016 End: 11-29-2018 Multivitamin 1 EACH tablet Discontinued 1 NMA PO DAILY July 22, 2016 12:00am November 29, 2018 2:15pm Multivitamin preparation (6 sources) Start: 07-22-2016 End: [...] Date Documented Da te Episodic/Chronic Allergic reactions (7 sources) Allergic condition; Translations: [Allergy, unspecified, initial encounter] 10-15-2020 Episodic Headache; including migraine (7 sources) Chronic headache disorder; Translations: [Chronic headache disorder] 10-15-2020 Episodic Menopausal disorders (1 source) Drug therapy finding; Translations: [Hormone replacement therapy] 04-25-2024 Episodic Comment on above: from another provide r Nonspecific chest pain (8 sources) Chest pain; Translations: [Chest pain, unspecified] Episodic Other bone disease and musculoskeletal deformities (7 sources) Osteopenia; Translations: [Other specified disorders of bone density and structure, unspecified site] 10-15-2020 Episodic Other connective tissue disease (4 sources) Muscle pain; Translations: [Myalgia, unspecified site] 01-05-2023 Episodic Other non-epithelial cancer of skin (7 sources) Basal cell carcinoma of skin; Translations: [Basal cell carcinoma of skin, unspecified] 10-15-2020 Episodic Other nutritional; endocrine; and metabolic disorders (4 sources) Loss of appetite; Translations: [Anorexia] 01-05-2023 Episodic Other screening for suspected conditions (not mental disorders or infectious disease) (2 sources) Cervical smear result; Translations: [Unsatisfactory cytologic smear of cervix] 03-23-2023 Episodic Comment on above: repeat done Residual codes; unclassified (7 sources) History of colonoscopy; Translations: [Other specified postprocedural states] 12-18-2021 Episodic Residual codes; unclassified (2 sources) Pain; Translations: [Pain, unspecified] Episodic Residual codes; unclassified (1 source) Pain, unspecified; Translations: [Pain] Onset: 10-15-2022 Episodic Spondylosis; intervertebral disc disorders; other back problems (7 sources) Backache; Translations: [Dorsalgia, unspecified] 10-16-2020 Episodic Sprains and strains (1 source) Strain of muscle(s) and tendon(s) of the rotator cuff of right shoulder, subsequent encounter; Translations: [Strain of muscle(s) and tendon(s) of the rotator cuff of right shoulder, subsequent encounter] Onset: 03-17-2025 Episodic Syncope (8 sources) Syncope; Translations: [Syncope and collapse] Episodic Viral infection (4 sources) Acute viral disease; Translations: [Viral infection, unspecified] 01-05-2023 Episodic Past or Other Problems Problem Classification Problem Date Documented Da te Episodic/Chronic Other gastrointestinal disorders (3 sources) Finding of abdomen; Translations: [Other specified symptoms and signs involving the digestive system and abdomen] Onset: 06-24-2012 06-24-2012 Episodic Results Test Name Value Interpretation Reference Range Facility Inital Evaluation (1) - PTon 03-02-2025 Inital Evaluation (1) - PT [facility] Physical [facility] [address] [place] [address] / REHABILITATION SERVICES INITIAL EVALUATION MR#: [id number] Acct: [id number] Name: ANT SNIDER Rep #: [id number] : 1965 59 From: Jonelle SIMS Referring Dr.: LORETTA Munoz Status: REG R CR Insurance: [employer] PAY INSURANCE Patient's Visit Information Visit Information Visit Information: ANT SNIDER is a 59 year old F referred to Physical Therapy by LORETTA Munoz with a diagnosis of R RC Repair and R Bicep Tenodesis S/P 02/15/25. Date of Evaluation: 03/01/25 Physical Therapist: BETHANY Jackson Visit Plan Frequency: 2x /Week Duration: 3 Months Plan: PROM only X 4 weeks (Limit ER to 40 degrees and no extension X 6 weeks) (until 03-29-25) Protocol in folder 2X/ week for 12 weeks for PROM, AAROM, AROM, Postural exercises, RC strengthening with HEP HEP: scapular squeezes, pendulums FW/BW and Side to side Subjective Subjective: R handed. She injured her R shoulder back in July and the pain did not go away, She had had surgery on 02-15-25. She is not sleeping well. She tried to go to her bed last night and it was not good. She has been mostly in the recliner. She is in the sling for 6 weeks until she goes back to the Dr. Pain R shoulder pain: Pain Intensity (Out of 10): 2 Objective Objective: scapular retraction, pendulums, AAROM R bicep flexion R shoulder PROM flexion 102 and L ER 11 Pt had a hard time relaxing with PROM Goals Goal 1:: I HEP Goal Time Frame: 6-8 Weeks Goal 2:: Increase R shoulder AROM to full pain free ROM by DC Goal Time Frame: 6-8 Weeks Goal 3:: Be able to use her R arm with ADL's without pain Goal Time Frame: 6-8 Weeks Goal 4:: Increase R shoulder strength to be equal to the L by DC Goal Time Frame: 6-8 Weeks Rehabilitation Potential Rehabilitation Potential: Good Anticipated Interventions Patient/Client Instruction: Educate patient on: Condition and Plan of Care For the Purpose of:: To decrease pain, To decrease swelling/inflammation , To increase ROM, To improve nutrient delivery to tissue, To improve muscle performance and motor function, To improve ability to perform ADL's, To increase tolerance to activity/condition/po sition, To improve performance and independence with ADL's, To decrease level of supervision to perform tasks, To improve ability of physical actions for home/community/work/l eisure, To improve health of tissue, To decrease soft tissue restriction and To increase flexibility/ROM Therapeutic Exercise to Include: Strength training, Postural training, Flexibilty training, Passive ROM, Active ROM and Scapular Strength/Stabilizatio n For the Purpose of:: To decrease pain, To decrease swelling/inflammation , To increase ROM, To improve nutrient delivery to tissue, To improve muscle performance and motor function, To improve ability to perform ADL's, To increase tolerance to activity/condition/po sition, To improve performance and independence with ADL's, To decrease level of supervision to perform tasks, To improve ability of physical actions for home/community/work/l eisure, To improve health of tissue, To decrease soft tissue restriction and To increase flexibility/ROM Manual Therapy Techniques to Include: Passive ROM and Soft tissue mobilization For the Purpose of:: To decrease pain, To increase ROM, To improve nutrient delivery to tissue, To improve muscle performance and motor function, To improve ability to perform ADL's, To increase tolerance to activity/condition/po sition, To improve performance and independence with ADL's, To improve health of tissue, To decrease soft tissue restriction and To increase flexibility/ROM Cryotherapy (ice pack, ice massage): Yes Thermo therapy (hot pack): Yes For the Purpose of:: To decrease pain, To decrease swelling/inflammation and To increase ROM Text: Thank you for the opportunity to evaluate your patient. For Medicare and Medicare HMO plans, please review the plan of care and approve it. It will need to be FAXED BACK to us at [phone] for Medicare purposes. For Medicare only, by signing this I certify the plan of care. Please let me know if there are questions or concerns regarding this plan of care. Physician Signature: Date : 03/02/25 1432 CC: LORETTA Munoz; Dr. Summer Maldonado DO Signed Normal [facility] 12 Lead EKGon 01-27-2025 12 Lead EKG [facility] [address] [place] [address] 12 Lead EKG 01/27/25 0817 MR#: [id number] Acct: [id number] Name: ANT SNIDER Rep #: [id number] : 1965 59 From: Perez Montalvo MD Attending Dr: Dr. Dewayne Harrison DO Status: REG CLI Ordering Dr: Dewayne Harrison DO Date: 01/27/25 Location: [facility] Sex: F C Admitted: Test Reason : PREOP Blood Pressure : */* mmHG Vent. Rate : 64 BPM Atrial Rate : 64 BPM P-R Int : 148 ms QRS Dur : 86 ms QT Int : 416 ms P-R-T Axes : 70 49 54 degrees QTcB Int : 429 ms Normal sinus rhythm Normal ECG Confirmed by PEREZ MONTALVO MD ([id number]), editor managing director MAGNOLIA BAUER ([id number]) on 01/27/2025 2:17:38 PM Also confirmed by PEREZ MONTALVO MD ([id number]), MAGONLIA Rivas ([id number]) on 01/27/2025 2:21:04 PM Referred By: Dewayne Harrison Confirmed By: PEREZ MONTALVO MD 01/27/25 1421 Date Perez Montalvo MD CC: Dr. Summer Maldonado DO; Dr. Dewayne Harrison DO Signed Normal [facility] Absolute lymphocyte countOrd ered By: Dewayne Harrison on 01-27-2025 Lymphocytes Auto (Unsp spec) [#/Vol] 1.59 10*3/uL 0.83-4.51 [facility] Absolute neutrophil countOrd ered By: Dewayne Harrison on 01-27-2025 Neutrophils (Bld) [#/Vol] 3.1 10*3/uL 2.0-7.7 [facility] Anion gap in Serum or Plasma Ordered By: Dewayne Harrison on 01-27-2025 Anion gap [Moles/Vol] 10 mmol/L - [facility] Automated lymphocyte count a s percentage of total leukocytesOrdered By: Dewayne Harrison on 01-27-2025 Lymphocytes/100 WBC Auto (Unsp spec) 29.1 % [facility] BUN/creatinine ratioOrdered By: Dewaynemarlys Harrison on 01-27-2025 Urea nitrogen/Creatinine [Mass ratio] 17.8 mg/mg - [facility] Basic Metabolic Profile (BMP )on 01-27-2025 BUN/CRE 17.8 RATIO Normal - [facility] Comment on above: Performed By: #### L 100.0100, L500.2500 #### [facility] [address] [place], [address] Calcium [Mass/Vol] 9.3 mg/dL Normal 7.6-11.0 [facility] Comment on above: Performed By: #### L 100.0100, L500.2500 #### [facility] [address] [place], [address] Chloride [Moles/Vol] 102 mmol/L Normal 98-108 [facility] Comment on above: Performed By: #### L 100.0100, L500.2500 #### [facility] [address] [place], [address] CO2 [Moles/Vol] 25.2 mmol/L Normal 21.0-32.0 [facility] Comment on above: Performed By: #### L 100.0100, L500.2500 #### [facility] [address] [place], [address] Creatinine [Mass/Vol] 0.82 mg/dL Normal 0.70-1.20 [facility] Comment on above: Performed By: #### L 100.0100, L500.2500 #### [facility] [address] [place], [address] GAP 10 Normal 5-15 [facility] Comment on above: Performed By: #### L 100.0100, L500.2500 #### [facility] [address] [place], [address] GFR/1.73 sq M.predicted among non-blacks MDRD (S/P/Bld) [Vol rate/Area] 82 mL/min/{1.73_m2} Normal >60 [facility] Comment on above: Result Comment: mL/m in/1.73m2 CKD-EPI Creatinine Equation (2020) Performed By: #### L 100.0100, L500.2500 #### [facility] [address] [place], [address] Glucose [Mass/Vol] 98 mg/dL Normal 70-99 [facility] Comment on above: Performed By: #### L 100.0100, L500.2500 #### [facility] [address] [place], [address] Potassium [Moles/Vol] 4.2 mmol/L Normal 3.3-5.1 [facility] Comment on above: Performed By: #### L 100.0100, L500.2500 #### [facility] [address] [place], [address] Sodium [Moles/Vol] 137 mmol/L Normal 133-145 [facility] Comment on above: Performed By: #### L 100.0100, L500.2500 #### [facility] [address] [place], [address] Urea nitrogen [Mass/Vol] 15 mg/dL Normal 4-19 [facility] Comment on above: Performed By: #### L 100.0100, L500.2500 #### [facility] [address] [place], [address] Basophil percentageOrdered B y: Dewayne Harrison on 01-27-2025 Basophils/100 WBC (Bld) 0.5 % 0-1 [facility] CBC W/Diff, Automatedon 01-09 Absolute Lymph 1.59 X10 3/uL Normal 0.83-4.51 [facility] Comment on above: Performed By: #### L 100.0100, L500.2500 #### [facility] [address] [place], [address] Absolute Neut 3.1 X10 3/uL Normal 2.0-7.7 [facility] Comment on above: Performed By: #### L 100.0100, L500.2500 #### [facility] [address] [place], [address] Basophils/100 WBC (Bld) 0.5 % Normal 0-1 [facility] Comment on above: Performed By: #### L 100.0100, L500.2500 #### [facility] [address] [place], [address] Eosinophils/100 WBC (Bld) 1.8 % Normal 0-5 [facility] Comment on above: Performed By: #### L 100.0100, L500.2500 #### [facility] [address] [place], [address] Erythrocyte distribution width (RBC) [Ratio] 12.3 % Normal 11.6-14.6 [facility] Comment on above: Performed By: #### L 100.0100, L500.2500 #### [facility] [address] [place], [address] Hematocrit (Bld) [Volume fraction] 39.6 % Normal 37-47 [facility] Comment on above: Performed By: #### L 100.0100, L500.2500 #### [facility] [address] [place], [address] Hemoglobin (Bld) [Mass/Vol] 12.8 g/dL Normal 12.0-15.0 [facility] Comment on above: Performed By: #### L 100.0100, L500.2500 #### [facility] [address] [place], [address] IG% 0.400 Normal 0.0-0.9 [facility] Comment on above: Result Comment: IG% - Immature Granulocytes (promyelocytes, myelocytes and metamyelocytes) > 1% indicates that a LEFT SHIFT is Present. Performed By: #### L 100.0100, L500.2500 #### [facility] [address] [place], [address] Lymphocytes/100 WBC (Bld) 29.1 % Normal 19-41 [facility] Comment on above: Performed By: #### L 100.0100, L500.2500 #### [facility] [address] [place], [address] MCH (RBC) [Entitic mass] 29.5 pg Normal 27.0-32.0 [facility] Comment on above: Performed By: #### L 100.0100, L500.2500 #### [facility] [address] [place], [address] MCHC (RBC) [Mass/Vol] 32.3 g/dL Normal 32-36 [facility] Comment on above: Performed By: #### L 100.0100, L500.2500 #### [facility] [address] [place], [address] MCV (RBC) [Entitic vol] 91.2 fL Normal 81-99 [facility] Comment on above: Performed By: #### L 100.0100, L500.2500 #### [facility] [address] [place], [address] Monocytes/100 WBC (Bld) 10.6 % High 0-10 [facility] Comment on above: Performed By: #### L 100.0100, L500.2500 #### [facility] [address] [place], [address] Neutrophils/100 WBC (Bld) 57.6 % Normal 47-70 [facility] Comment on above: Performed By: #### L 100.0100, L500.2500 #### [facility] [address] [place], [address] Nucleated RBC (Bld) [#/Vol] 0 10*3/uL Normal 0-5 [facility] Comment on above: Performed By: #### L 100.0100, L500.2500 #### [facility] [address] [place], [address] Platelet mean volume (Bld) [Entitic vol] 9.6 fL Normal 6.2-12.0 [facility] Comment on above: Performed By: #### L 100.0100, L500.2500 #### [facility] [address] [place], [address] Platelets (Bld) [#/Vol] 188 10*3/uL Normal 150-450 [facility] Comment on above: Performed By: #### L 100.0100, L500.2500 #### [facility] [address] [place], [address] RBC (Bld) [#/Vol] 4.34 10*6/uL Normal 4.2-5.4 [facility] Comment on above: Performed By: #### L 100.0100, L500.2500 #### [facility] [address] [place], [address] RDW SD 40.8 fl Normal 35.1-43.9 [facility] Comment on above: Performed By: #### L 100.0100, L500.2500 #### [facility] [address] [place], [address] WBC (Bld) [#/Vol] 5.5 10*3/uL Normal 4.4-11.0 [facility] Comment on above: Performed By: #### L 100.0100, L500.2500 #### [facility] [address] [place], [address] Carbon dioxide, total [Moles /volume] in Central venous bloodOrdered By: Dewayne Harrison on 01-27-2025 CO2 [Moles/Vol] 25.2 mmol/L 21.0-32.0 [facility] Chloride assayOrdered By: Stephania Harrison on 01-27-2025 Chloride [Moles/Vol] 102 mmol/L 98-108 [facility] Electrocardiogram reportOrde red By: Perez Montalvo on 01-27-2025 EKG study [facility] Cardiovascular Services [address] [place] [address] 12 Lead EKG 01/27/25 0817 MR#: [id number] Acct: [id number] Name: ANT SNIDER Rep #:[id number] : 1965 59 From: Perez Montalvo MD Attending Dr: Dr. Dewayne Harrison DO Status: REG CLI Ordering Dr: Dewayne Harrison DO Date: 01/27/25 Location: N Sex: F C Admitted: Test Reason : PREOP Blood Pressure : */* mmHG Vent. Rate : 64 BPM Atrial Rate : 64 BPM P-R Int : 148 ms QRS Dur : 86 ms QT Int : 416 ms P-R-T Axes : 70 49 54 degrees QTcB Int : 429 ms Normal sinus rhythm Normal ECG Confirmed by PEREZ MONTALVO MD ([id number]), editor managing director MAGNOLIA BAUER ([id number]) on 01/27/2025 2:17:38 PM Also confirmed by SELVIN MANN, PEREZ ([id number]), editor managing director MAGNOLIA BAUER ([id number]) on 01/27/2025 2:21:04 PM Referred By: Dewayne Harrison Confirmed By: PEREZ MONTALVO MD 01/27/25 142 Date _ Perez Montalvo MD CC: Dr. Summer Maldonado DO; Dr. Dewayne Harrison DO ~ Signed [facility] Work Phone: Eosinophil percentageOrdered By: Dewayne Harrison on 01-27-2025 Eosinophils/100 WBC (Bld) 1.8 % 0-5 [facility] Erythrocyte distribution wid th ratioOrdered By: Dewayne Harrison on 01-27-2025 Erythrocyte distribution width (RBC) [Ratio] 12.3 % 11.6-14.6 [facility] Erythrocyte distribution wid th standard deviationOrdered By: Dewayne Harrison on 01-27-2025 Erythrocyte distribution width (RBC) [Ratio] 40.8 fl 35.1-43.9 [facility] Glomerular filtration rate ( GFR) estimation/1.73 sq m using serum, plasma, or whole bOrdered By: Dewayne Harrison on 01-27-2025 GFR/1.73 sq M.predicted among non-blacks MDRD (S/P/Bld) [Vol rate/Area] 82 mL/min/{1.73_m2} >60 [facility] Comment on above: mL/min/1.73m2 CKD-EP I Creatinine Equation (2020) Hematocrit Auto (Bld) [Volum e fraction]Ordered By: Dewayne Harrison on 01-27-2025 Hematocrit (Bld) [Volume fraction] 39.6 % 37-47 [facility] Hemoglobin measurementOrdere d By: Dewayne Harrison on 01-27-2025 Hemoglobin (Bld) [Mass/Vol] 12.8 g/dL 12.0-15.0 [facility] Immature granulocytes/100 WB C Auto (Bld)Ordered By: Dewayne Harrison on 01-27-2025 Immature granulocytes/100 WBC (Bld) 0.400 % 0.0-0.9 [facility] Comment on above: IG% - Immature Granu locytes (promyelocytes, myelocytes and metamyelocytes) > 1% indicates that a LEFT SHIFT is Present. MCV (mean corpuscular volume ) determinationOrdered By: Dewayne Harrison on 01-27-2025 MCV (RBC) [Entitic vol] 91.2 fL 81-99 [facility] Mean corpuscular hemoglobin (MCH) determinationOrdered By: Dewayne Harrison on 01-27-2025 MCH (RBC) [Entitic mass] 29.5 pg 27.0-32.0 [facility] Mean corpuscular hemoglobin concentration (MCHC) determinationOrdered By: Dewayne Harrison on 01-27-2025 MCHC (RBC) [Mass/Vol] 32.3 g/dL 32-36 [facility] Mean platelet volume determi nationOrdered By: Dewayne Harrison on 01-27-2025 Platelet mean volume (Bld) [Entitic vol] 9.6 fL 6.2-12.0 [facility] Monocyte percentageOrdered B y: Dewayne Harrison on 01-27-2025 Monocytes/100 WBC (Bld) 10.6 % High 0-10 [facility] Neutrophil percentageOrdered By: Dewayne Harrison on 01-27-2025 Neutrophils/100 WBC (Bld) 57.6 % 47-70 [facility] Nucleated red blood cell per centageOrdered By: Dewayne Harrison on 01-27-2025 Nucleated RBC/100 WBC (Bld) [Ratio] 0 % 0-5 [facility] Platelet countOrdered By: Stephania Harrison on 01-27-2025 Platelets (Bld) [#/Vol] 188 10*3/uL 150-450 [facility] Potassium measurement (mass/ volume)Ordered By: Dewayne Harrison on 01-27-2025 Potassium (Unsp spec) [Mass/Vol] 4.2 mmol/L 3.3-5.1 [facility] RBC Auto (Bld) [#/Vol]Ordere d By: Dewayne Harrison on 01-27-2025 RBC (Bld) [#/Vol] 4.34 10*6/uL 4.2-5.4 [facility] Serum creatinine measurement (mass/volume)Ordered By: Dewayne Harrison on 01-27-2025 Creatinine [Mass/Vol] 0.82 mg/dL 0.70-1.20 [facility] Serum glucose measurement (m ass/volume)Ordered By: Dewayne Harrison on 01-27-2025 Glucose [Mass/Vol] 98 mg/dL 70-99 [facility] Serum or plasma calcium court urement (mass/volume)Ordered By: Dewayne Harrison on 01-27-2025 Calcium [Mass/Vol] 9.3 mg/dL 7.6-11.0 [facility] Serum or plasma urea nitroge n measurement (mass/volume)Ordered By: Dewayne Harrison on 01-27-2025 Urea nitrogen [Mass/Vol] 15 mg/dL 4-19 [facility] Sodium levelOrdered By: Sai Harrison on 01-27-2025 Sodium [Moles/Vol] 137 mmol/L 133-145 [facility] White blood cell (WBC) count Ordered By: Dewayne Harrison on 01-27-2025 WBC (Bld) [#/Vol] 5.5 10*3/uL 4.4-11.0 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 Recently started estrogen patch 0.025mg twice a week and micronized progesterone 100mg WHS through [facility] for hot flashes and brain fog. Has [...] finding Z01.419 (more content not included)... Normal [facility] Cervical or vagninal specime n microscopic examination by cytology stain (reported asOrdered By: Clotilde Humphries on 03-16-2023 Cytology report Cyto stain Doc (Cvx/Vag) Comment . [facility] Comment on above: The Pap smear is [...] 33,Ordered By: Clotilde Humphries on 03-16-2023 HPV 16+18+31+33+35+39+45+51+ 52+56+58+59+66+68 DNA Probe+sig amp Ql (Cvx) Negative Negative [facility] Comment on above: This nucleic acid am plification test detects fourteen high-risk HPV types (16,18,31,33,35,39,45,51,52,56,58,59,66,68)without differentiation. Laboratory - CytologyOrdered By: Clotilde Humphries on 03-16-2023 Tobacco Weigher Cyto stain Nom (Cvx/Vag) [ID] Comment . [facility] Comment on above: Danii Caban, Cytote chnologist (ASCP) Recommended follow-up Cyto stain Nom (Cvx/Vag) Comment . [facility] Comment on above: Suggest follow up as clinically appropriate. Laboratory - Miscellaneous t estsOrdered By: Clotilde Humphries on 03-16-2023 Service comment (Unsp spec) [Interp] Comment . [facility] Comment on above: This liquid based Th inPrep(R) pap test was screened withthe use of an image guided system. Service comment (Unsp spec) [Interp] . . [facility] Liquid-based cerv Pap + CT/G C by ELSA w reflex to high-risk HPV for ASCUSOrdered By: Clotilde Humphries on 03-16-2023 Cytology report Cyto stain.thin prep Doc (Cvx/Vag) Comment . [facility] Comment on above: Criteria not met, HP V Genotype not performed.Performed at: [address] [id number] Director: Sandra Moya MD, Phone: [phone] at: =[address] [id number] Director: Sandra Moya MD, Phone: [phone] No Panel InformationOrdered By: Clotilde Humphries on 03-16-2023 Pap Smear Specimen Adequacy Comment . [facility] Comment on above: Specimen processed a nd examined, but unsatisfactory for evaluation ofepithelial abnormality because of excessive lubricant.Specimen processed and examined but unsatisfactory for evaluation ofepithelial abnormality because of insufficient cellularity. Pathology report final diagnosis Narrative Comment . [facility] Comment on above: UNSATISFACTORY FOR E VALUATION. COVID-19 virus antigen assay Ordered By: Dennis Freed on 01-05-2023 SARS-CoV-2 (COVID-19) Ag IA.rapid Ql (Resp) [facility] SARS-CoV-2 (COVID-19) Ag IA.rapid Ql (Resp) [facility] Basophil percentageOrdered B y: HEALTH ASSESSMENT on 11-06-2022 Cholesterol [Mass/Vol] 217 mg/dL <200 [facility] Comment on above: <200 mg/dL Desirable 200-240 mg/dL Borderline >240 mg/dL High Risk Glucose [Mass/Vol] 92 mg/dL 74-106 [facility] Triglyceride [Mass/Vol] 66 mg/dL <199 [facility] Comment on above: The drugs N-Acetylcy steine and Metamizole may falsely depress this assay.Serum Triglycerides Reference Interval Normal <150 mg/dL Borderline high 150 - 199 mg/dL High 200 - 499 mg/dL Very High > or = 500 mg/dL Serum or plasma cholesterol in HDL measurement (mass/volume)Ordered By: HEALTH ASSESSMENT on 11-06-2022 Cholesterol in HDL [Mass/Vol] 81 mg/dL >40 [facility] Comment on above: The drugs N-Acetylcy steine and Metamizole may falsely depress this assay. Reference Range HDL <40 mg/dL Low HDL Cholesterol HDL >or= 60 mg/dL High HDL Cholesterol Serum or plasma cholesterol in VLDL measurement (mass/volume)Ordered By: HEALTH ASSESSMENT on 11-06-2022 Cholesterol in VLDL [Mass/Vol] 13 mg/dL 5-40 [facility] Serum or plasma low density lipoprotein (LDL) cholesterol measurement (mass/volume)Ordered By: HEALTH ASSESSMENT on 11-06-2022 Cholesterol in LDL [Mass/Vol] 123 mg/dL 0-130 [facility] CNOVon 10-16-2022 CNOV Office Visit (ARTURO ) NAT SNIDER ([id number]) 1965 F NFR Date Time Provider Department [...] extensor co (more content not included)... Normal [facility] XR WRIST 3V PA/LAT/OBL LTon 10-15-2022 [...] soft tissue. 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 Transcribe Date/Time: Oct 17 2022 5:17P Dictated by : CAM PALMER MD This examination was interpreted and the report reviewed and electronically signed by: CAM PALMER MD on Oct 17 2022 5:18PM EST [id number] Normal [facility] XR WRIST GENERAL 3V PA/LAT/O BL LEFTon 10-15-2022 [facility] Basophil percentageon 2021 Cholesterol [Mass/Vol] 208 mg/dL <200 [facility]a [facility] Work Phone: Comment on above: <200 mg/dL Desirable 200-240 mg/dL Borderline >240 mg/dL High Risk Glucose [Mass/Vol] 86 mg/dL 74-106 [place] [facility] Work Phone: Triglyceride [Mass/Vol] 63 mg/dL <199 [address] [place] [facility] Work Phone: Comment on above: The drugs N-Acetylcy steine and Metamizole may falsely depress this assay.Serum Triglycerides Reference Interval Normal <150 mg/dL Borderline high 150 - 199 mg/dL High 200 - 499 mg/dL Very High > or = 500 mg/dL Serum or plasma cholesterol in HDL measurement (mass/volume)on 11-21-2021 Cholesterol in HDL [Mass/Vol] 74 mg/dL >40 [facility] Work Phone: Comment on above: The drugs N-Acetylcy steine and Metamizole may falsely depress this assay. Reference Range HDL <40 mg/dL Low HDL Cholesterol HDL >or= 60 mg/dL High HDL Cholesterol Serum or plasma cholesterol in VLDL measurement (mass/volume)on 11-21-2021 Cholesterol in VLDL [Mass/Vol] 13 mg/dL 5-40 [facility] Work Phone: Serum or plasma low density lipoprotein (LDL) cholesterol measurement (mass/volume)on 11-21-2021 Cholesterol in LDL [Mass/Vol] 121 mg/dL 0-130 [facility] Work Phone: SARS coronavirus RNA [Presen ce] in Unspecified specimen by ELSA with probe detectionon 05-17-2021 SARS-CoV RNA ELSA+probe Ql (Unsp spec) Not detected Not Detected [facility] Work Phone: Comment on above: This nucleic [...] of in vitro diagnostic tests for detection [id number] virus and/or diagnosis of COVID-19 infectionunder section [...] Date Time Vital Sign Value Performing Clinician Kitty davis 03-16-2023 15:00-0500 Body height 152.[address] Summer Maldonado Work Phone: [facility] 03-16-2023 15:00-0500 Body mass index (BMI) [Ratio] 23.8 kg/m2 Dr. Summer Maldonado Work Phone: [facility] 03-16-2023 15:00-0500 Body weight 55.[address] Summer Maldonado Work Phone: [facility] 03-16-2023 15:00-0500 Diastolic blood pressure 76 mm[Hg] Dr. Summer Maldonado Work Phone: [facility] 03-16-2023 15:00-0500 Systolic blood pressure 139 mm[Hg] Dr. Summer Maldonado Work Phone: [facility] 01-05-2023 19:18-0400 Body height 152.[address] [facility] 01-05-2023 19:18-0400 Body mass index (BMI) [Ratio] 24 kg/m2 [facility] 01-05-2023 19:18-0400 Body temperature 99.3 [degF] [facility] 01-05-2023 19:18-0400 Body weight 55.[address] [facility] 01-05-2023 19:18-0400 Diastolic blood pressure 70 mm[Hg] [facility] 01-05-2023 19:18-0400 Heart rate 100 /min [facility] 01-05-2023 19:18-0400 Respiratory rate 18 /min [facility] 01-05-2023 19:18-0400 SaO2% (BldA) [Mass fraction] 95 % [facility] 01-05-2023 19:18-0400 Systolic blood pressure 139 mm[Hg] [facility] 03-10-2022 15:39-0400 Body height 152.[address] Summer Maldonado Work Phone: [facility] Work Phone: 03-10-2022 15:38-0400 Body mass index (BMI) [Ratio] 25.7 kg/m2 Dr. Summer Maldonado Work Phone: [facility] Work Phone: 03-10-2022 15:38-0400 Body weight 59.[address] Summer Maldonado Work Phone: [facility] Work Phone: 03-10-2022 15:38-0400 Diastolic blood pressure 92 mm[Hg] Dr. Summer Maldonado Work Phone: [facility] Work Phone: 03-10-2022 15:38-0400 Systolic blood pressure 154 mm[Hg] Dr. Summer Maldonado Work Phone: [facility] Work Phone: 12-19-2021 15:51-0400 Body height 152.[address] Summer Maldonado Work Phone: [facility] Work Phone: 12-19-2021 15:51-0400 Body mass index (BMI) [Ratio] 25.6 kg/m2 Dr. Summer Maldonado Work Phone: [facility] Work Phone: 12-19-2021 15:51-0400 Body weight 59.[address] Summer Maldonado Work Phone: [facility] Work Phone: 12-19-2021 15:51-0400 Diastolic blood pressure 72 mm[Hg] Dr. Summer Maldonado Work Phone: [facility] Work Phone: 12-19-2021 15:51-0400 Heart rate 72 /min Dr. Summer Maldonado Work Phone: [facility] Work Phone: 12-19-2021 15:51-0400 Respiratory rate 16 /min Dr. Summer Maldonado Work Phone: [facility] Work Phone: 12-19-2021 15:51-0400 Systolic blood pressure 120 mm[Hg] Dr. Summer Maldonado Work Phone: [facility] Work Phone: Encounters Encounter Date Encounter Type Care Provider Facility Start: 03-17-2025 [facility] Start: 02-08-2025 Encounter for other preprocedural examination [facility] Start: 01-27-2025 Non-patient / Non-visit Dr. Bailon [facility] Work Phone: Start: 01-27-2025 End: 01-27-[address] Summer Maldonado DO Work Phone: -Pulmonary Services/Neurology Start: 01-27-2025 End: 01-27-[address] Dewayne Harrison DO -Pulmonary Services/Neurology Work Phone: Start: 01-27-2025 End: 01-27-2025 [facility] Start: 01-26-2025 Encounter for other preprocedural examination [facility] Start: 01-26-2025 [facility] Start: 07-27-2024 ambulatory Summer Maldonado Facility:[facility] Start: 04-25-2024 End: 04-25-2024 ambulatory Summer Maldonado Facility:[facility] Start: 03-26-2023 End: 03-26-[address] Summer Maldonado Work Phone: [facility] Work Phone: Start: 03-26-2023 End: 03-26-[address] Summer Maldonado Work Phone: [facility]-Outpatient Bone Densitometry Work Phone: Start: 03-16-2023 End: 03-16-[address] Summer Maldonado Work Phone: [facility] Work Phone: Start: 03-16-2023 End: 03-16-[address] Summer Maldonado Work Phone: [facility] Work Phone: Start: 01-05-2023 End: 01-05-2023 Emergency department patient visit [facility]-Emergency Department Work Phone: Start: 11-06-2022 Registered Referred [facility] Work Phone: Start: 10-16-2022 End: 10-16-2022 ambulatory DEBORAH A FAST Facility:[facility] Start: 10-15-2022 End: 10-15-2022 ambulatory DEBORAH A FAST Facility:[facility] Start: 10-15-2022 End: 10-15-2022 Subsequent hospital visit by physician Xr [facility] Work Phone: Radiology Comment on above: Pain [R52] Start: 09-18-2022 Orders Only Kendall chau DO Work Phone: Appointment Center Comment on above: Pain (Primary Dx) Start: 03-10-2022 End: 03-10-[address] Summer Maldonado Work Phone: [facility] Work Phone: Start: 03-10-2022 End: 03-10-[address] Summer Maldonado Work Phone: [facility] Start: 01-09-2022 Non-patient / Non-visit Dr. Deyanira Maldonado Work Phone: [facility] Start: 01-09-2022 End: 01-09-[address] Summer Maldonado Work Phone: [facility] Work Phone: Start: 01-09-2022 End: 01-09-[address] [facility] Start: 12-19-2021 End: 12-19-[address] Summer Maldonado Work Phone: [facility] Start: 11-21-[address] Summer watson Work Phone: [facility] Start: 09-05-2021 Non-patient / Non-visit Dr. Deyanira Maldonado Work Phone: [facility] Start: 09-05-2021 End: 09-05-[address] Summer Maldonado [facility] Start: 05-17-2021 End: 05-17-[address] Summer Maldonado Work Phone: [facility]-Laboratory, Specimen Procedures Date Procedure Procedure Detail Performing Clinician Start: 03-26-2023 Dual energy X-ray absorptiometry Dr. Summer Maldonado Work Phone: Start: 03-16-2023 Screening mammography D dangelo Maldonado Work Phone: Start: 01-05-2023 Plain chest X-ray Start: 01-05-2023 Viral antigen assay Start: 10-15-2022 Radex wrist complete minimum 3 views Kendall Cooper DO Work Phone: Start: 03-10-2022 Screening mammography D rCollette Maldonado Work Phone: Start: 09-05-2021 Radionuclide imaging [...] 03-16-2023 Liquid based cervica l cytology screening [facility] Start: 01-09-2023 Influenza vaccination [facility] Start: 05-11-2022 DEPRESSION ASSESSMENT DEPRESSION ASS ESSMENT [facility] Start: 02-12-2018 Mammography [facility] Start: 06-17-2017 HPV TESTING HPV TESTING [facility] Start: 06-17-2017 PAP TESTING PAP TESTING [facility] Start: 11-26-2016 Lipid 1996 panel - S angel or Plasma Lipid Screening [facility] Start: 11-26-2016 LIPID SCREEN LIPID SCREEN [facility] Start: 06-24-2015 DIABETES SCREEN DIABETES SCREEN [facility] Start: 06-24-2015 Diabetes Screening Diabetes Screenin g [facility] Start: 2014 SHINGRIX VACCINE (1 of 2) SHINGRIX VACCINE (1 of 2) [facility] Start: 12-21-2013 Colonoscopy COLONOSCOPY [facility] Start: 12-21-2013 COLORECTAL CANCER SCREENING COLORECTAL CANCER SCREENING [facility] Start: 2009 COLOGUARD (FIT-DNA) COLOGUARD (FIT-D NA) [facility] Start: [address] COLONOGRAPHY [facility] Start: 2009 FECAL OCCULT BLOOD FECAL OCCULT BLOO D [facility] Start: 2009 SIGMOIDOSCOPY SIGMOIDOSCOPY [facility] Start: 1983 Urine microalbumin profile [facility] Start: 1982 HEPATITIS C SCREENING HEPATITIS C SC BING [facility] Start: 1982 HIV SCREENING HIV SCREENING [facility] Start: 1965 COVID-19 VACCINE (#1) COVID-19 VACCI NE (#1) [facility] Start: 1965 HEPATITIS B (1 of 3 - 3-dose series) HEPATITIS B (1 of 3 - 3-dose series) [facility] Start: 1965 Hepatitis B Vaccine (1 of 3 - 3-dose series) Hepatitis B Vaccine (1 of 3 - 3-dose series) [facility] Liquid based cervica l cytology screening [facility] Work Phone: Path report.final Dx Spec [facility] Patient Education ED Myalgias ED Viral Syndrome (Adult) [facility] Work Phone: Patient referral [facility] Work Phone: End: 10-18-2023 XR WRIST GENERAL 3V PA/LAT/OBL LEFT XR WRIST GENERAL 3V PA/LAT/OBL LEFT Radiology Routine Pain 1 Occurrences starting 09/18/2022 until 10/18/2023 [facility] Work Phone: Comment on above: 1 Occurrences starti ng 09/18/2022 until 10/18/2023 [facility] Payers Date Payer Category Payer Unknown [id number] 2024 Unknown [id number] 2024 Self-pay [id number] 2024 Unknown [id number] 2018 Private Health Insurance [facility] UMR CHOICE PLUS [id number] 2018-Present [phone] [address] [address] [place] [address] O [id number] 2009 Unknown [id number] Unknown [id number] Unknown [id number] Unknown [id number] Unknown [id number] Unknown [id number] Social History Date Type Detail Facility Start: 02-25-2021 End: 03-16-2023 Tobacco smoking status WYIS Unknown if ever smoked [facility] Start: 1965 Sex Assigned At Female W [facility] Start: 09-17-2012 End: 03-16-2023 Tobacco smoking status NHIS Ex-smoker [facility] Work Phone: End: 09-18-1987 History of tobacco use Current smoker [facility] Work Phone: End: 09-18-1987 History of tobacco use Cigarette Smoker [facility] Work Phone: Start: 09-17-2012 Tobacco use and exposure Smoke less tobacco non-user [facility] Work Phone: Start: 08-04-2016 Alcohol intake 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 Cuca Cortes, Supervisory Motel Front Desk Clerk (ASCP) Comment on above: Madonna Cevallos Motel Front Desk Clerk (ASCP) 01-05-2023 Discharge summary Note Date/Time January 05, 2023 9:50pm [facility] Medical Records Department [address] [place] [address] Emergency Department Summary 01/05/23 MR#: [id number] Acct: [id number] Name: ANT SNIDER Rep #:[id number] : [...] She is not on any long-term medications. [facility] Medical History Allergies Basal cell carcinoma (BCC) [...] Signed: Rosalia Manzano MD at 20:24 EDT , Discharge Plan Triage Chief Complaint: Shortness [...] problems, contact your Primary Care Provider. Call [facility] ([phone]) or report to the closest Emergency Room. Call 911 if necessary. 01/05/232149 <Electronically signed by Dennis Freed MD> Cosigner Signature (if applicable): CC: Dr. Summer Maldonado DO ~ Signed [facility] Work Phone: [phone]) 137-549606-08-2023 NoteHNO ID: [id number] Author: Kendall Cooper DO Service: ? Author [...] Quervain's tenosynovitis Informed Consent Consent Obtained: Verbal [place] Protocol A moment to CARE was completed. SIGN IN Personnel directly involved with the (more content not included)...[facility]06-07-2023 NoteHNO ID: [id number] Author: RT Norman(Keyla) Service: ? Author Type: [...] BY: RT Norman(R) October 15, 2022 3:49 [facility]06-07-2023 History of Present illness Narrative* Gio Saldana [...] 15, 2022 3:49 PM documented [facility] NoteHNO ID: [id number] Author: Jose Mcmillan Service: ? Author Type: ? Type: Progress Notes Filed: 09/18/2022 12:58 PM Note Text: Left [facility] pain[facility]2023 NoteHNO ID: [id number] Author: Jose Mcmillan Service: ? Author Type: ? Type: Progress Notes Filed: 09/18/2022 12:55 PM Note Text: [facility]Bl[facility] History of Present illness Narrative* Jose Mcmillan - 09/18/2022 12:55 PM EDT Left wrist pain documented in [facility] encounter[facility] History of Present illness Narrative* Jose Mcmillan - 09/18/2022 12:54 PM EDT Left wrist pain [facility] noteNo assessment information availableWUniversity [facility] Work Phone: Evaluation note* Diagnosis Onset Date Resolution Status Chest pain acute Syncope acute [facility] Work Phone: Evaluation note* Diagnosis Onset Date Resolution Status Chest pain acute Syncope acute Encounter for routine gynecological examination noneactive [facility] Work Phone: Evaluation note* Diagnosis Pain- Primary Generalized pain documented in this encounter [facility] note* Diagnosis Pain Generalized pain documented in this encounter [facility] note* Diagnosis Onset Date Resolution Status Encounter for routine gynecological examination noneactive [facility] Work Phone: Reason for referral (narrative)* Diagnostic Procedure Only (Routine) - Authorized Specialty Diagnoses / Procedures Referred By Sarthak t Referred To Contact XR IMAGING Diagnoses Pain Procedures XR WRIST GENERAL 3V PA/LAT/OBL LEFT RADEX WRIST COMPLETE MINIMUM 3 VIEWS Chicorelli, Gretta, DO [address] [place] [address] Xr Imaging Referral ID Status Reason Start Date Expiration Date Visits Requested Visits Authorized [id number] Authorized Auto-Generat ed Referral 09/18/2022 10/18/2023 1 1 [facility] for referral (narrative)* Diagnostic Procedure Only (Routine) - Closed Specialty Diagnoses / Procedures Referred By Contac t Referred To Contact XR IMAGING Diagnoses Pain Procedures XR WRIST GENERAL 3V PA/LAT/OBL LEFT RADEX WRIST COMPLETE MINIMUM 3 VIEWS Kendall Cooper DO [address] [place] [address] [place] [address] Referral ID Status Reason Start Date Expiration Date V isits Requested Visits Authorized [id number] Closed Auto-Generate d Referral 09/18/2022 10/18/2023 1 1 [facility] for referral (narrative)No reason for referral information availableW[facility] Work Phone: Reason for visit Narrative* Diagnostic Procedure Only (Routine) - Closed Specialty Diagnoses / Procedures Referred By Contac t Referred To Contact XR IMAGING Diagnoses Pain Procedures XR WRIST GENERAL 3V PA/LAT/OBL LEFT RADEX WRIST COMPLETE MINIMUM 3 VIEWS Kendall Cooper DO [address] [place] [address] [place] [address] Referral ID Status Reason Start Date Expiration Date V isits Requested Visits Authorized [id number] Closed Auto-Generate d Referral 09/18/2022 10/18/2023 1 1 [facility] Chief Complaint and Reason for Visit Chief Complaint COVID DRIVE THRU JOAQUINA T EKG CHANGE, SYNCOPAL EPISODE EKG CHANGE, SYNCOPAL EPISODE Chief Complaint syncope/cp/ref. adelina s SYNCOPE Reason for Visit Chest pain Syncope Chief Complaint syncope/cp/ref. adelina s SYNCOPE SCREENING Annual ([employer]) Reason for Visit Chest pain Syncope Encounter for routine gynecological examination Chief Complaint sob Chief Complaint sob SCREENING Annual ([employer]) Reason for Visit Encounter for routin e gynecological examination Chief Complaint sob SCREENING Annual ([employer]) OSTEO Reason for Visit Encounter for routin e gynecological examination Chief Complaint Admit Date PRE-OP January 27, 2025 8:04am PRE-OP January 27, 2025 8:17am Family History No Family History Records Found Relationship Condition Age at Onset Recorded Date/T dane father Diabetes mellitus Unknown Hypertension Unknown mother Osteoporosis Unknown Malignant neoplasm Unknown Fibrosis of lung Unknown Advance Directives No Advanced Directives Records Found Advance Directive Response Recorded Date/ Time Living Will No July 22, 2016 3:44pm Power of [employer] Teacher No July 22 3:44pm Advance Directive Response Recorded Date/ Time Living Will No July 22, 2016 2:44pm Power of [employer] Teacher No July 22 2:44pm Advance Directive Response Recorded Date/ Time Living Will No January 05 3 8:17pm Power of [employer] Teacher No January 05, 2 023 8:17pm Advance Directive Response Recorded Date/ Time Living Will No January 05 3 7:17pm Power of [employer] Teacher No January 05, 2 023 7:17pm Summary [...] or prosecute any alcohol or drug abuse patient.[facility] Center[facility] the event this information is protected by the Federal Confidentiality of Alcohol and Drug Abuse Patient Records regulations: The Federal rules restrict any use of the information to criminally investigate or prosecute any alcohol or drug abuse patient.[facility] Center[facility] the event this information is protected by the Federal Confidentiality of Alcohol and Drug Abuse Patient Records regulations: The Federal rules restrict any use of the information to criminally investigate or prosecute any alcohol or drug abuse patient.[facility] Care Teams (unrecognized sec tion and content) [employer] Relationship Specialty Start Date End Date Deborah Recinos DO [address] [facility] [address] [place], [place] [id number] PCP - General 11/03/03 Rail [employer]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 Summer Maldonado DO Family Provider Active Dr. Summer Maldonado DO Primary Care Provider Active Team Status: Active Member Role Status Dates Dr. Summer Maldonado DO Primary Care Provider Active Health Risk Assessment Attending Provider Active Team Status: Inactive Member Role Status Dates Dr. Summer Maldonado DO Primary Care Provider Active Dr. Dennis Freed MD Emergency Provider Active [employer] Relationship Specialty Start Date End Date Deborah Recinos DO [address] [facility] [facility] [address] [place] [address] PCP - General 11/03/03 Team Status: Inactive Member Role Status Dates Dr. Summer Maldonado DO Primary Care Provider, Referring P vikder Active Dr. Clotilde Humphries MD Attending Provider Active Team Status: Inactive Member Role Status Dates Dr. Summer Maldonado DO Primary Care Provider Active Dr. Dennis Freed MD Attending Provider, Emergency Provider Active Team Status: Inactive Member Role Status Dates Dr. Summer Maldonado DO Primary Care Provide r, Attending Provider, Referring Provider Active Team Status: Active Member Role/Relationship Status Dates Dr. Summer Maldonado DO Primary care physician Active Team Status: Inactive Member Role/Relationship Status Dates Dr. Summer Maldonado DO Primary care physician Active Start: January 27, 2025 End: January 27, 2025 Dr. Dewayne Harrison DO Attending physician Active Start: January 27, 2025 End: January 27, 2025 Dr. Dewayne Harrison DO Referring Provider Active Start: January 27, 2025 End: January 27, 2025 Team Status: Active Member Role/Relationship Status Dates Dr. Summer Maldonado DO Primary care physician Active Start: January 27, 2025 Dr. Perez Montalvo MD Attending physician Active Start: January 27, 2025 Dr. Dewayne Harrison DO Referring Provider Active Start: January 27, 2025 INFORMATION SOURCE (unrecogn ized section and content) DATE CREATED AUTHOR 10/21/2022 [facility] DATE CREATED AUTHOR AUTHOR'S ORGANIZ ATION 03/17/[address] [facility] FOR RECORDS PERTAINING TO PATIENTS WHO [...] BE BASED ON THE PRIMARY CLINICAL RECORDS. [employer] provides no warranty or guarantee of the accuracy or completeness of information in this document.
== END | disposition home or self-care (01) ==
LOC: OPBI 07:18
PROVIDERS: PCP Family Medicine; Referring Provider Nurse Practitioner Women's Health; Visit Provider Nurse Practitioner Women's Health
DX: Z12.31 Encounter for screening mammogram for malignant neoplasm of breast (principal); Z80.3 Family history of malignant neoplasm of breast
CPT/HCPCS: 77063; 77067